=== PATIENT | female | born 1940 | race Caucasian/White ===

== ENCOUNTER 2024-11-05 13:25 | Inpatient (IN) | payer MEDICARE, SELFPAY ==
[2024-11-02] VITALS (11 sets, daily range): BP systolic 125–168; BP diastolic 56–69; BMI 22.1
--- NOTE | 2024-11-02 10:09 | ED.GENMED ---
History of Present Illness
General
Chief Complaint: Breathing Problem
Time Seen by Provider: 11/02/24 09:57
Nursing documentation reviewed up to this point in time: agreed with
History of Present Illness
History of Present Illness:
84-year-old female presents to the ER for evaluation of shortness of breath. Patient is a vague historian with a history of Alzheimer's. She is accompanied by her who provides the majority of the history. He states that she had 2
significant admissions this summer at [facility] due to similar symptoms of shortness of breath which led to admissions for treatment of sepsis. He reports that they were unable to find any clear etiology of the infection. He had been at rehab up
until last Saturday and has been living at home with him since then. Yesterday morning on awakening she had an episode of shortness of breath and severe fatigue. Symptoms seem to improve throughout the day. He states that this morning she was
short of breath and unable to take her prescription medications prompting telehealth to refer her to the ER for further evaluation. She is a long-term patient of Dr. Peterson, oncology, for treatment of breast cancer, currently only on anastrozole.
also reports that patient may need to undergo bone marrow biopsy due to recent testing that had been performed by Dr. Peterson. No reported fevers at home. Patient denies chest pain. She denies abdominal pain nausea vomiting or diarrhea.
No peripheral edema noted. No prior personal history of ACS. reports that she underwent catheterization at [facility] in April without any significant coronary artery disease identified.
Review of Systems
Review of Systems
Allergies reviewed?: Yes
Phy Exam
Physical Exam
Physical Exam:
Patient is awake, elderly, appears in no acute distress, head is normocephalic atraumatic, PERRL, EOMI, mucous membranes moist, conjunctiva pink, sclera anicteric, no JVD, heart regular rate and rhythm without murmurs or ectopy, lungs are clear to
auscultation without wheezes rales or rhonchi, abdomen is soft and nontender on palpation, extremities without edema, moving all extremities symmetrically without focal deficit
Scores
Heart Failure Risk
Heart Failure Risk Score: Not Applicable
Course
Orders/Labs/Results
Orders:
Orders
11/02/24 09:45
ECG [Electrocardiogram (*1)] Urgent
Reason for Study: Shortness of Breath
EKG- Treatment ONCE
11/02/24 10:06
IV Insert/Care/Rem.- Treatment PRN
Straight cath- Treatment ONCE
Pulse Ox/cont/shift [RESP] Stat
Quantity: 1
11/02/24 10:07
Cardiac Monitoring- Treatment ONCE
CR Chest - 2 Views Urgent
Comment:
Reason For Exam: dyspnea
11/02/24 10:22
Complete Blood Count/With Diff Urgent
Comprehensive Metabolic Panel Urgent
Magnesium Urgent
NT-proBNP Urgent
PTT Urgent
Prothrombin Time Urgent
Troponin I Q3H
Urinalysis Reflex To Culture Urgent
Date Specimen was Collected: 11/02/24
Time Specimen was Collected: 10:20
Urine Microscopic Reflex Cult Urgent
11/02/24 11:41
CT Pe/abd/pel W Urgent
Reason For Exam: dyspnea, elev LFTs
11/02/24 12:02
0.9% Sodium Chloride 500 ml [Nss] 500 ml IV BOLUS
Abnormal Lab Results
11/02/24
10:22
WBC 4.5 L 10^3/uL
(4.8-10.8)
RBC 2.93 L 10^6/uL
(4.20-5.40)
Hgb 9.6 L g/dL
(12.0-16.0)
Hct 26.5 L %
(37.0-47.0)
MCH 32.8 H pg
(27.0-31.0)
RDW 17.5 H %
(11.5-14.5)
MPV 11.3 H fL
(7.4-10.4)
Abs Immat Gran (auto) 0.1 H 10^3/uL
(0-0.05)
Absolute Lymphs (auto) 0.8 L 10^3/uL
(1.2-3.4)
Immature Gran % 1.1 H %
(0-0.5)
Lymphocytes % 17.9 L %
(20.5-51.1)
Chloride 110 H mmol/L
(98-107)
Carbon Dioxide 17 L mmol/L
(22-30)
BUN 30 H mg/dl
(7-17)
Glucose 168 H mg/dl
(70-99)
Magnesium 2.4 H mg/dl
(1.6-2.3)
AST 102 H U/L
(14-36)
ALT 207 H U/L
(0-35)
Alkaline Phosphatase 677 H U/L
(38-126)
Urine Albumin (Reflex) 2+ A
(Neg - Trace)
11/02/24 10:22
11/02/24 10:22
Vital Signs
Initial and Last Documented VS:
Initial Vital Signs
Temp Pulse Resp BP Pulse Ox
97.4 F 66 18 125/65 100
11/02/24 09:39 11/02/24 09:39 11/02/24 09:39 11/02/24 09:39 11/02/24 09:39
Last Documented Vital Signs
Temp Pulse Resp BP Pulse Ox
97.4 F 74 23 143/64 100
11/02/24 09:39 11/02/24 15:00 11/02/24 15:00 11/02/24 15:00 11/02/24 13:45
MDM/Problems Addressed
Differential Diagnosis Includes:
Differential diagnosis to consider but not limited to occult infection, dehydration, electrolyte dyscrasia, ACS, along with other etiologies considered
Chronic conditions affecting care:
Dementia, breast cancer, recent hospitalization, advanced age
*Radiology
Radiology exam reviewed: radiology read reviewed (I reviewed CT results)
*Pulse Oximetry
SaO2: 100
Oxygen Mode of Delivery: Room air
Patient hypoxic: no
*EKG
Interpreted by ED Provider?: Yes (I independently viewed and interpreted twelve-lead EKG showing normal sinus rhythm, rate 64, normal axis, normal intervals, T wave inversion noted in the lateral leads, no evidence for acute ischemia, no prior for
comparison)
*Director Of Consumer Affairs Interpretation
Rate: normal (I independently viewed and interpreted rhythm strip showing normal sinus rhythm, no ectopy)
*Critical Care Note
Total Time (30-74mins, 75-104mins- exclusive of procedures): Not Applicable
Data Reviewed
Review of Other/Old Records Reveals: Labs (Patient's was able to pull up results on his phone to share with me CBC from 10/27/24-white blood count 3.8, hemoglobin 9. Chemistry from 10/15 showed sodium 132, CO2 20, BUN 29, creatinine 1.39, alk
phos 243, AST 16, ALT 34. STORMY from 10/15 showed mild concentric LVH with an EF of 60 to 65%.) and Radiology Studies ( was able to show me noncontrast CT abdomen and pelvis result from 10/12/24 showing simple right renal cyst, diverticulosis,
ASCVD, status post cholecystectomy, right adrenal adenoma and bibasilar atelectasis)
Update Note
Update Note:
Patient resting comfortably. She been placed on nasal cannula oxygen just due to tachypnea, no documented hypoxia while awaiting test results. I reviewed all test results with patient, at bedside and daughter over the telephone. We
discussed mild anemia seen. We discussed elevation LFTs along with normal troponin. I discussed with them chest x-ray without acute finding. Given known history of malignancy, will obtain CT PE along with CT of the abdomen pelvis for further
evaluation. They agree with plan at current. Will reevaluate.
I was able to speak with on-call oncologist covering for Dr. Peterson, who was able to review patient's medical record at time of our conversation. He would agree that LFT elevations are new and of uncertain but possibly concerning significance. We
reviewed her recent CT chest scan from October which did show a 3 mm right upper lobe nodule, a 7 mm right lower lobe nodule and a small left pleural effusion. I discussed with him the patient would likely be admitted for further evaluation and
care. He agrees with this plan. I reviewed full patient presentation with hospitalist who accepts patient for admission for further care
ED Attending Note
-
Portions of this chart may have been created with voice recognition software.� Occasional wrong word or��sound alike� substitutions may have occurred due to the inherent limitations of voice recognition software.
Discharge Plan
Departure
Patient Disposition: Admit
Date of Disposition: 11/02/24
Time of Disposition: 14:43
Presentation/result/management discussed w/ accepting MD/DO: Hospitalist
Discharge Problem:
Elevated LFTs, Tachypnea, Malignancy
Referrals:
PRIVATE,PHYSICIAN [Family Provider, Internal Medicine]
Interventions
Interventions:
*Risk Screen - Suicide Last Done: 11/02/24 09:39
*General Assessment Last Done: 11/02/24 09:39
*Neglect/Abuse Screening Last Done: 11/02/24 10:25
*ED- Fall Risk Assessment Last Done: 11/02/24 10:25
*ED COVID-19 Vaccine History Last Done: 11/02/24 10:25
ED- Cardiac Assessment Last Done: 11/02/24 10:02
ED- Pulmonary Assessment Last Done: 11/02/24 10:02
Discharge Date and Time
Print Language: SINHALA
[2024-11-02 10:33] LABS: Urine Character Clear (Clear)
[2024-11-02 10:48] LABS: ALT (SGPT) 207 U/L (0-35); AST (SGOT) 102 U/L (14-36); Albumin 3.5 g/dl (3.5-5.0); Alkaline Phosphatase 677 U/L (38-126); Blood Urea Nitrogen 30 mg/dl (7-17); Calcium 9.2 mg/dl (8.4-10.2); Carbon Dioxide 17 mmol/L (22-30); Chloride 110 mmol/L (98-107); Glucose 168 mg/dl (70-99); Magnesium 2.4 mg/dl (1.6-2.3); Potassium 4.7 mmol/L (3.5-5.1); Sodium 135 mmol/L (135-145); Total Protein 6.4 g/dl (6.3-8.2); eGFR 56.25
[2024-11-02 11:00] LABS: Troponin I < 0.012 ng/ml
[2024-11-02 11:09] LABS: INR 1.04; PT 13.9 Sec (11.4-14.6)
[2024-11-02 11:10] LABS: APTT 29.4 Sec (23.4-35.0)
[2024-11-02 11:18] LABS: Hematocrit 26.5 % (37.0-47.0); Hemoglobin 9.6 g/dL (12.0-16.0); Mean Corp Hgb Conc. 36.2 g/dL (33.0-37.0); Mean Corpuscular Volume 90.4 fL (81.0-99.0); Nucleated Red Blood Cells % 0 %; Platelet Count 202 10^3/uL (130-400); Red Cell Dist. Width 17.5 % (11.5-14.5)
[2024-11-02] MEDS: NSS 500 IV ×2 (12:35→16:10)
[2024-11-02 12:57] LABS: Urine Red Blood Cell 0-2 /HPF (0-2)
--- NOTE | 2024-11-02 14:38 | HPS.HSE ---
Family Physician
-
Family Physician: PHYSICIAN PRIVATE
Chief Complaint
-
Dizzy, fatigue and short of breath
History of Present Illness
84-year-old female past medical history for Alzheimer's, dementia, obstructive sleep apnea, CKD, NSTEMI, coronary artery disease, type 2 diabetes, papillary thyroid cancer status post thyroidectomy renal cell cancer status post left nephrectomy,
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 Patient recently
admitted to [facility] with the same symptoms. Lastly she was then admitted to [facility] with sepsis of unclear etiology. Patient just came home last week from rehab. Patient denied any headache fever, chills, cough, congestion. Patient
denied any abdominal pain, nausea, vomiting, diarrhea. Patient denied dysuria hematuria. She is a long-term patient of Dr. Peterson, oncology, for treatment of breast cancer, currently only on anastrozole. also reports that patient may need
to undergo bone marrow biopsy due to recent testing that had been performed by Dr. Peterson.
Admitting for further management.
Medical History
Past Medical History
Past Medical History: Reports Other
Additional Past Medical History:
Osteoarthritis, CKD, NSTEMI, coronary artery disease, type 2 diabetes, hyperlipidemia, diverticulitis, GERD, hypertension, hypothyroidism, Alzheimer's, dementia, obstructive sleep apnea, papillary thyroid cancer, renal cell cancer, breast cancer,
precancerous pancreatic cell
Past Surgical History: Reports Other
Additional Past Surgical History:
Thyroidectomy, left nephrectomy, Whipple surgery
Social History
Tobacco: Former Smoker
Alcohol: None
Drug: None
Personal:
Living: With Family
Family History
Family History: Not pertinent
Allergies / Home Medications
Allergies reflects when Allergies were last updated in [facility].
Home Medications with original date entered in [facility]
Allergy/Medication List:
Allergies
Allergy/AdvReac Type Severity Reaction Status Date / Time
No Known Allergies Allergy Unverified 11/02/24 09:44
Review of Systems
-
Constitutional: Reports Fatigue
EENT: Reports No Symptoms
Respiratory: Reports Trouble Breathing
Cardiac: Reports Chest Pain
Abdomen/GI: Reports No Symptoms
: Reports No Symptoms
Musculoskeletal: Reports No Symptoms
Skin: Reports No Symptoms
Neurological: Reports Dizzy
Endocrine: Reports No Symptoms
Hematologic/Lymphatic: Reports No Symptoms
Psych: Reports No Symptoms
Physical Exam
Vital Signs
Vital Signs
Temp Pulse Resp BP Pulse Ox
97.4 F 71 29 168/56 100
11/02/24 09:39 11/02/24 13:45 11/02/24 13:45 11/02/24 13:25 11/02/24 13:45
Physical Exam
General: Well Developed, Well Nourished and No Apparent Distress
HEENT: NormoCephalic, Moist mucous membranes and Atraumatic
Respiratory: Clear
Cardiac: S1/S2 and Regular Rhythm; No Murmur or Rub
GI: Soft, Non Tender, Non Distended and Normal Bowel Sounds; No Organomegaly
Rectal: Deferred by Provider
Musculoskeletal: No Clubbing, No Cyanosis and No Edema
Skin: No Rash
Neuro: AO x 3 and Nonfocal/grossly intact
Psych: Calm
Laboratory Results
-
11/02/24 10:22
11/02/24 10:22
Laboratory Results
PT 13.9 Sec (11.4-14.6) 11/02/24 10:22
INR 1.04 11/02/24 10:22
APTT 29.4 Sec (23.4-35.0) 11/02/24 10:22
Total Bilirubin 0.6 mg/dl (0.2-1.3) 11/02/24 10:22
AST 102 U/L (14-36) H 11/02/24 10:22
ALT 207 U/L (0-35) H 11/02/24 10:22
Alkaline Phosphatase 677 U/L (38-126) H 11/02/24 10:22
Troponin I < 0.012 ng/ml 11/02/24 10:22
Troponin I Cancelled 11/02/24 10:22
Data Reviewed
-
Diagnostic Radiology: Report Reviewed by me
CT Scan: Report Reviewed by me
Lab Data: Labs Reviewed by me
Impression/Plan
-
# Tachypnea/dizzy, fatigue,chest pain sob likely from metastatic disease
- CTPE negative for PE. Pulmonary nodules raising possibility of pulmonary metastasis
- Chest x-ray negative
- Continue to monitor
-pulmonology and oncology consulted
# Transaminitis likely metastatic disease.
- AST 102, ALT 207, 677
-denied abdominal pain
# Anemia likely from chronic disease
- Hemoglobin 9.6, no active bleeding
-ctm
#non anion gap Metabolic acidosis
-co2 17, ctm
# History of papillary thyroid cancer
- Status post thyroidectomy
- On Synthroid
# Type 2 diabetes
- repaglinide continued
-Sliding scale, CHO diet
# Depression/anxiety
# History of Alzheimer's with dementia
-Sertraline continued
# Essential hypertension
- Norvasc, continue with hold parameters
#History of CAD/NSTEMI
- Aspirin continued
# History of breast cancer
- On anastrozole
# History of kidney cancer status post left nephrectomy
# DVT prophylaxis
- Lovenox
# CODE STATUS
- Full code
--- NOTE | 2024-11-02 15:29 | W.PN.UPDATE ---
Update Note
Progress Note Update
I could not get any information from the patient is katina historian due to cognitve disorder wiht mild alziemers dementia
Information gathered by chart review and speaking with the ER staff and
This note serves as an addendum to the H&P by research geologist VIMAL�
Mame EVELYNE�
HPI�
84F vague historian , cognitve disorder with mild alziemers dementian no prior admission to , normally f/u [facility], HC HTN, Breast CA on anastrozole , Lt nephrctomy for HX RCCCa left with solitary R Kideney with preserved renal
function, HX thyroidenctomy , on LT4 HRT , Depression seen at ER
- evaluation of shortness of breath
- accompanied by her who provides the majority of the history
- she had 2 significant admissions this summer at [facility] due to similar symptoms of shortness of breath found out sepsis and treated but uncertain origin for infection.
- then she had been at SNF up until last Saturday10/28/24 then DC'd to home and has been living at home
- Yesterday morning on awakening she had an episode of shortness of breath and severe fatigue. Symptoms seem to improve throughout the day. He states that this morning she was short of breath and unable to take her prescription medications
prompting telehealth to refer her to the ER for further evaluation.
ROS:
No reported fevers at home.
denies chest pain.
denies abdominal pain nausea vomiting or diarrhea.
No peripheral edema noted.
No prior personal history of ACS.
Of note:
long-term patient of Dr. Peterson, oncology, for treatment of breast cancer, currently only on anastrozole.
also reports that patient may need to undergo bone marrow biopsy due to recent testing that had been performed by Dr. Peterson. reports that she underwent catheterization at [facility] in April without any significant coronary
artery disease identified.
Relevant VS
Temp Pulse Resp BP Pulse Ox
97.4 F 74 23 143/64 100
11/02/24 09:39 09/01/25 15:00 11/02/24 15:00 11/02/24 15:00 11/02/24 13:45
PE
Gen: NAD, not toxic
HEENT: NAD
Neck: no JVD
Lungs: CTA without wheezes rales or rhonchi
Cor: RRR. No murmur
Abdomen:� soft and nontender
ZOO KEEPER: NFND grossly
EXT; no edema
Relevant Data�
11/02/24
10:22
WBC 4.5 L
Hgb 9.6 L
MCV 90.4
Plt Count 202
INR 1.04
Chloride 110 H
Carbon Dioxide 17 L
BUN 30 H
Creatinine 1.0
eGFR 56.25
Glucose 168 H
Magnesium 2.4 H
AST 102 H
ALT 207 H
Alkaline Phosphatase 677 H
Eli-C-Nvblayqgihr Pept 407
Albumin 3.5
EKG
NSR
T WAVE ABNORMALITY, CONSIDER LATERAL ISCHEMIA
ABNORMAL ECG
NO PREVIOUS ECGS AVAILABLE
CXR: no acute process
CT Pe/abd/pel W intravenous contrast
- No acute disease of the chest, abdomen and pelvis.
- No evidence of pulmonary embolus.
- Pulmonary nodules raising possibility of pulmonary metastasis.
PET imaging recommended. [facility] Pulmonary Nodule Advisory Board will be automatically informed of the findings.
- Several too small to characterize hypodense hepatic lesions likely cysts or hemangiomas.
- Right parapelvic renal cysts. Simple right renal cysts.
Too small to characterize hypodense right renal lesions likely benign cysts.
- Left nephrectomy.
- Right adrenal soft tissue nodule.
This may be malignant or benign.
- This could further be evaluated by a nonurgent PET imaging or MRI examination.
- Moderate fecal matter in the colon.
NO PRIOR hospitalist admission:
ASSESSMENT & PLAN
Pending Rx reconciliation
Paroxysmal Dyspneic episodes with tachypnea of uncertain origin
Pulmonary nodules raising possibility of pulmonary metastasis from Breast CA
HX Breast CA
P oncologist at [facility]: Dr. Peterson
- no objective hypoxia
- NEG CTC for PE
- No evidence of PNA
- No clinical evidence of acute HF - NEG CXR
- Not bronchospastic
- f/u RR and POx
- Onco and Pul consult
Elevated LFTs of uncertain significance - ALT > AST wit POS AKP
- Concerning for liver mets
- avoid Hepatotoxic
- To consider Liver MRI
- await Onco evaluation
Bicytopenia ( WCC and RBC)
Normocytic anemia
Normal Plt
DDX: BM infiltration ?
- trend CBC with differentia
HX Breast CA on Anastrazole
- Recurrent metastatic dz to Lungs, Ary<del>e</del>r and BM ?
- To consider BM Bx as OP
- await Onco evaluation
NAG MA 8 with HCO3 17
Solitary R Kidney
S/P Lt nephrectomy for RCCa
- preserved RFts
- Trend BMP daily
Moderate fecal matter in the colon
- IV NS 500 cc x1
- Miralax now and daily
- Colace BID and hold for diarrhea
Conditions LEAD ESTHETICIAN
Essential HTN: stable, LEAD ESTHETICIAN Lisinopril 40 daily, Amlodipine 10mg daily, trend BMP
Depression: stable, on LEAD ESTHETICIAN sertraline
DVT Px: LMWH
Full code
OBS but TLM due to tachypnea
[2024-11-02] MEDS: MIRALAX 17 GRAMS PO (16:11)
[2024-11-02 16:47] LABS: Glucose - Point of Care 228 mg/dl (70-99)
[2024-11-02] MEDS: PRANDIN 2 MG PO (17:12)
[2024-11-02] MEDS: NOVOLOG FLEXPEN-LOW RESISTANCE 2 UNITS SC (17:12)
[2024-11-02] MEDS: LOVENOX 40 MG SC (17:12)
--- NOTE | 2024-11-02 17:30 | PTCARENOTE ---
Received patient from ED via stretcher. AAOx3, assisted to bed. Forgetful at times. Bed alarm in place. at bedside. Assessed and oriented to room. Continues to be SOB/Tachypneic but states 'it is better than it was'. 3LO2 100%. Call lyon in
close reach.
[2024-11-02] MEDS: COLACE 100 MG PO (19:58)
[2024-11-02] MEDS: ZOLOFT 50 MG PO (20:01)
[2024-11-02] MEDS: SENOKOT-S 1 TABLET PO (20:06)
[2024-11-02] MEDS: NORVASC 5 MG PO (20:10)
[2024-11-02 21:19] LABS: Glucose - Point of Care 239 mg/dl (70-99)
[2024-11-03 03:00] VITALS: BP 148/56
[2024-11-03] MEDS: SYNTHROID 125 MCG PO (05:51)
[2024-11-03 07:30] VITALS: BP 128/61
[2024-11-03 07:47] LABS: Glucose - Point of Care 206 mg/dl (70-99)
[2024-11-03 08:09] LABS: Hematocrit 27.1 % (37.0-47.0); Hemoglobin 9.1 g/dL (12.0-16.0); Mean Corp Hgb Conc. 33.6 g/dL (33.0-37.0); Mean Corpuscular Volume 91.6 fL (81.0-99.0); Nucleated Red Blood Cells % 0 %; Platelet Count 201 10^3/uL (130-400); Red Cell Dist. Width 17.8 % (11.5-14.5)
[2024-11-03 08:56] LABS: ALT (SGPT) 158 U/L (0-35); AST (SGOT) 71 U/L (14-36); Albumin 3.1 g/dl (3.5-5.0); Alkaline Phosphatase 561 U/L (38-126); Blood Urea Nitrogen 26 mg/dl (7-17); Calcium 7.7 mg/dl (8.4-10.2); Carbon Dioxide 17 mmol/L (22-30); Chloride 113 mmol/L (98-107); Estimated Creatinine Clearance 34 ml/min; Glucose 169 mg/dl (70-99); Potassium 4.4 mmol/L (3.5-5.1); Sodium 136 mmol/L (135-145); Total Protein 5.7 g/dl (6.3-8.2); eGFR 50.17
--- NOTE | 2024-11-03 09:12 | W.PN.HOSP.TC ---
Today's Communication/Plan
-
Wean off oxygen
Assessment / Plan
Assessment / Plan
Physical Exam
General: Well Developed, Well Nourished and No Apparent Distress
HEENT: Normocephalic, Moist mucous membranes and Atraumatic
Respiratory: no wheezes.
Cardiac: S1/S2
GI: Soft, Non Tender, Non Distended and Normal Bowel Sounds;
Musculoskeletal: No Clubbing, No Cyanosis and No Edema
Skin: No Rash
Neuro: AO x 3 and Nonfocal/grossly intact
Psych: Calm
# Acute respiratory distress
She presented with Tachypnea/dizzy, fatigue,chest discomfort
No hypoxia detected, she was given oxygen for comfort
- CTPE negative for PE. Pulmonary nodules raising possibility of pulmonary metastasis
- Chest x-ray negative
- Continue to monitor
-pulmonology and oncology consulted
# Transaminitis likely metastatic disease.
- AST 102, ALT 207, 677
-denied abdominal pain
# Anemia likely from chronic disease
- Hemoglobin 9.6, no active bleeding
-ctm
# History of kidney cancer status post left nephrectomy
Known CKD stage II non anion gap Metabolic acidosis
# History of papillary thyroid cancer
- Status post thyroidectomy
- On Synthroid
# Type 2 diabetes
- repaglinide continued
-Sliding scale, CHO diet
# Depression/anxiety
# History of Alzheimer's with dementia
-Sertraline continued
# Essential hypertension
- Norvasc, continue with hold parameters
#History of CAD/NSTEMI
No chest pain, she feels better, think O2 helped.
- Aspirin continued
# History of breast cancer
- On anastrozole
# DVT prophylaxis
- Lovenox
# CODE STATUS
Full code
Total time spent to see the patient, examine the patient, review data lab result, discuss treatment plan with patient, nursing staff around 55 minutes
Anticipated Discharge: Within 24 hours
Subjective/Interval History
-
Date of Service: November 03, 2024
No chest pain
No sob
She feels better
Objective Data
-
Labs:
Laboratory Results
11/03/24
06:57
WBC 5.4
Hgb 9.1 L
Hct 27.1 L
Plt Count 201
Sodium 136
Potassium 4.4
Chloride 113 H
Carbon Dioxide 17 L
BUN 26 H
Creatinine 1.1 H
Glucose 169 H
Calcium 7.7 L D
Total Bilirubin 0.3
AST 71 H
ALT 158 H
Alkaline Phosphatase 561 H
Vital Signs:
Vital Signs
Temp Pulse Resp BP Pulse Ox
98.5 F 68 20 128/61 96
11/03/24 07:30 11/03/24 07:30 11/03/24 07:30 11/03/24 07:30 11/03/24 07:30
I&O
11/02/24 11/03/24 11/04/24
06:59 06:59 06:59
Intake Total 500 / 500
Output Total 650 / 650
Balance -150 / -150
[2024-11-03] MEDS: DETROL LA 4 MG PO (09:34)
[2024-11-03] MEDS: COLACE 100 MG PO ×2 (09:34→21:14)
[2024-11-03] MEDS: ARIMIDEX 1 MG PO (09:34)
[2024-11-03] MEDS: MIRALAX 17 GRAMS PO (09:35)
[2024-11-03] MEDS: PRANDIN 2 MG PO ×2 (09:35→16:40)
[2024-11-03] MEDS: LOW STRENGTH ASPIRIN 81 MG PO (09:35)
[2024-11-03 09:42] LABS: Glycohemoglobin (HgbA1c) 7.3 % (4.0-5.6)
--- NOTE | 2024-11-03 10:37 | CON.ONC ---
Impression
Impression
History of breast cancer, stage unknown, currently on Arimidex
History of abnormal blood test that may require a bone marrow
Dementia
Shortness of breath, unclear etiology
History of renal cancer, status post nephrectomy
History of thyroid cancer
Plan
Plan
No clear etiology for her shortness of breath. I am not certain what the abnormal blood test that may require a bone marrow was. The only finding of note on her CBC is a hemoglobin of 9 g. I do not see an urgent need for a bone marrow at this
time. She should return to the care of her oncologist.
Patient History
History of Present Illness
Consult from Dr. Garcia regarding breast cancer
This 84-year-old woman was admitted with shortness of breath. She is unable to give me any sort of a meaningful history, and states that she is unaware of why she came to the emergency room. According to notes, she has had at least a couple of
other admissions in the last couple of months at other hospitals for symptomatic shortness of breath, no clear etiology ever found. She is on nasal oxygen at present, but her saturations have been in the mid to the high 90s. She denies any pain.
She underwent CT of the chest abdomen and pelvis which showed no pulmonary embolus. There were several small pulmonary nodules, as well as a 1.5 cm spiculated nodule. There were no other significant abnormalities.
Past-Medical/Surgical History
As per problem list.
Social history: She lives with her .
Family history is not obtainable.
Patient Medication
�Medication �Instructions �Recorded �Confirmed �Last Taken �Type
allopurinol 100 mg tablet 100 mg PO DAILY Gout 11/02/24 11/02/24 11/01/24 History
amlodipine 5 mg tablet 5 mg PO DAILY Blood Pressure 11/02/24 11/02/24 11/01/24 History
anastrozole 1 mg tablet 1 mg PO DAILY Cancer 11/02/24 11/02/24 11/01/24 History
aspirin 81 mg tablet,delayed 81 mg PO DAILY Blood Clot 11/02/24 11/02/24 11/01/24 History
release Prevention/Tx
cholecalciferol (vitamin D3) 25 25 mcg PO DAILY Supplement 11/02/24 11/02/24 11/01/24 History
mcg (1,000 unit) tablet
coenzyme Q10 100 mg tablet 100 mg PO DAILY Supplement 11/02/24 11/02/24 11/01/24 History
docusate sodium 100 mg capsule 100 mg PO BID Constipation 11/02/24 11/02/24 11/01/24 History
(Colace)
levothyroxine 125 mcg tablet 125 mcg PO DAILY@06 Thyroid 11/02/24 11/02/24 11/01/24 History
melatonin 5 mg tablet 5 mg PO HS PRN sleep 11/02/24 11/02/24 Unknown History
nitroglycerin 0.4 mg sublingual 0.4 mg sublingual PRN PRN CHEST 11/02/24 11/02/24 Unknown History
tablet PAIN
omeprazole 20 mg delayed 20 mg PO DAILYPRN PRN GERD 11/02/24 11/02/24 Unknown History
release,disintegrating tablet
repaglinide 2 mg tablet 2 mg PO BID Diabetes 11/02/24 11/02/24 11/01/24 History
sertraline 50 mg tablet 50 mg PO HS Mental Health/Anxiety 11/02/24 11/02/24 Unknown History
solifenacin 10 mg tablet 10 mg PO DAILY Urinary Issue 11/02/24 11/02/24 11/01/24 History
Active Medications
Generic Name Dose Route Start Last Admin
Trade Name Freq PRN Reason Stop Dose Admin
Amlodipine Besylate 5 mg 11/02/24 22:00 11/02/24 20:10
Amlodipine 5 Mg Tablet PO 11/30/24 21:59 5 mg
HS HUMBERTO Administration
Anastrozole 1 mg 11/03/24 08:00 11/03/24 09:34
Anastrozole 1 Mg Tablet PO 12/01/24 07:59 1 mg
DAILY HUMBERTO Administration
Aspirin 81 mg 11/03/24 08:00 11/03/24 09:35
Aspirin 81 Mg Chewable Tablet PO 12/01/24 07:59 81 mg
DAILY HUMBERTO Administration
Bisacodyl 10 mg 11/02/24 16:30
Bisacodyl 10 Mg Rectal Suppository RECTAL 11/30/24 16:29
[id number] PRN
constipation
Dextrose 12.5 grams 11/02/24 16:30
Dextrose 50% (0.5 Grams/Ml) 50 Ml Syringe IV 11/30/24 16:29
[id number] PRN
hypoglycemia
Protocol
Docusate Sodium 100 mg 11/02/24 20:00 11/03/24 09:34
Docusate Sodium 100 Mg Capsule PO 11/30/24 19:59 100 mg
BID HUMBERTO Administration
Enoxaparin Sodium 40 mg 11/02/24 18:00 11/02/24 17:12
Enoxaparin Sodium 40 Mg/0.4 Ml Syringe SC 11/30/24 17:59 40 mg
QPM HUMBERTO Administration
Glucagon 1 mg 11/02/24 16:30
Glucagon 1 Mg Vial IM 11/30/24 16:29
PRN PRN
hypoglycemia
Protocol
Insulin Aspart 0 units 11/02/24 16:30 11/02/24 17:12
Insulin Aspart Low Resistance 300 Units/3 Ml Pen.Injctr SC 11/30/24 16:29 2 units
AC HUMBERTO Administration
Protocol
Levothyroxine Sodium 125 mcg 11/03/24 06:00 11/03/24 05:51
Levothyroxine 125 Mcg Tablet PO 12/01/24 05:59 125 mcg
DAILY@0600 HUMBERTO Administration
Melatonin 5 mg 11/02/24 22:00
Melatonin 5 Mg Tablet PO 11/30/24 21:59
HS PRN
sleep
Polyethylene Glycol 17 grams 11/03/24 08:00 11/03/24 09:35
Polyethylene Glycol Powder 17 Grams Packet PO 12/01/24 07:59 17 grams
DAILY HUMBERTO Administration
Polyethylene Glycol 17 grams 11/02/24 16:30
Polyethylene Glycol Powder 17 Grams Packet PO 11/30/24 16:29
DAILYPRN PRN
constipation
Repaglinide 2 mg 11/02/24 17:00 11/03/24 09:35
Repaglinide 2 Mg Tablet PO 11/30/24 16:59 2 mg
BID@0800,1700 HUMBERTO Administration
Senna/Docusate Sodium 1 tablet 11/02/24 16:30 11/02/24 20:06
Docusate W/Senna (Candace-Colace) Tablet PO 11/30/24 16:29 1 tablet
BIDPRN PRN Administration
constipation
Sertraline HCl 50 mg 11/02/24 22:00 11/02/24 20:01
Sertraline 50 Mg Tablet PO 11/30/24 21:59 50 mg
HS HUMBERTO Administration
Tolterodine Tartrate 4 mg 11/03/24 08:00 11/03/24 09:34
Tolterodine 4 Mg Extended Release Capsule PO 12/01/24 07:59 4 mg
DAILY HUMBERTO Administration
Review of Systems
-
Unable to obtain full review of systems at this time due to: Dementia
Physical Exam
-
Physical examination shows the patient to be in no acute distress.
HEENT exam is unremarkable.
There are no palpable nodes.
Chest is clear.
The heart is regular with no murmur or gallop.
The abdomen is soft and nontender with no organomegaly or masses.
Extremities are unremarkable.
Neurologic is grossly intact.
Labs
Lab Results
WBC 5.4 10^3/uL (4.8-10.8) 11/03/24 06:57
RBC 2.96 10^6/uL (4.20-5.40) L 11/03/24 06:57
Hgb 9.1 g/dL (12.0-16.0) L 11/03/24 06:57
Hct 27.1 % (37.0-47.0) L 11/03/24 06:57
MCV 91.6 fL (81.0-99.0) 11/03/24 06:57
MCH 30.7 pg (27.0-31.0) 11/03/24 06:57
MCHC 33.6 g/dL (33.0-37.0) 11/03/24 06:57
RDW 17.8 % (11.5-14.5) H 11/03/24 06:57
Plt Count 201 10^3/uL (130-400) 11/03/24 06:57
MPV 10.6 fL (7.4-10.4) H 11/03/24 06:57
Abs Immat Gran (auto) 0.0 10^3/uL (0-0.05) 11/03/24 06:57
Absolute Neuts (auto) 4.0 10^3/uL (1.4-6.5) 11/03/24 06:57
Absolute Lymphs (auto) 0.9 10^3/uL (1.2-3.4) L 11/03/24 06:57
Absolute Monos (auto) 0.4 10^3/uL (0.1-0.6) 11/03/24 06:57
Absolute Eos (auto) 0.2 10^3/uL (0-0.7) 11/03/24 06:57
Absolute Basos (auto) 0.0 10^3/uL (0-0.2) 11/03/24 06:57
Immature Gran % 0.7 % (0-0.5) H 11/03/24 06:57
Neutrophils % 72.6 % (42.2-75.2) 11/03/24 06:57
Lymphocytes % 16.0 % (20.5-51.1) L 11/03/24 06:57
Monocytes % 7.2 % (1.7-9.3) 11/03/24 06:57
Eosinophils % 3.1 % (0-6) 11/03/24 06:57
Basophils % 0.4 % (0-2) 11/03/24 06:57
Creatinine 1.1 mg/dL (0.6-1.0) H 11/03/24 06:57
Vital Signs
Vital Signs
Temp Pulse Resp BP Pulse Ox
98.5 F 68 20 128/61 96
11/03/24 07:30 11/03/24 07:30 11/03/24 07:30 11/03/24 07:30 11/03/24 07:30
[2024-11-03 10:59] LABS: Glucose - Point of Care 199 mg/dl (70-99)
[2024-11-03] MEDS: NOVOLOG FLEXPEN-LOW RESISTANCE SC ×2 (10:59→16:40)
[2024-11-03] MEDS: NOVOLOG FLEXPEN-LOW RESISTANCE 1 UNITS SC (11:03)
[2024-11-03 11:07] VITALS: BP 125/59
--- NOTE | 2024-11-03 13:33 | CON.PUL ---
Consultation
Consultation Request
Date/Time Consultation Requested: 11/03/2024
Date/Time Consultation Performed: 11/03/2024
Requesting Provider: Dr. Hayes
Performing Provider: Dr. Mauricio Wheeler
Reason for Consultation: Abnormal CT chest/lung nodules/shortness of breath
Medical History
-
History of Present Illness:
84-year-old female with past medical history significant for Alzheimer's dementia, obstructive sleep apnea, chronic kidney disease, non-ST elevation myocardial infarction, coronary artery disease, type 2 diabetes, papillary thyroid cancer status
post thyroidectomy, renal cell cancer status post left nephrectomy, breast cancer currently on Arimidex-follows up at [facility]. Also status post Whipple surgery for precancerous pancreatic lesion, GERD, hyperlipidemia, hypertension
presented to the hospital complaining of shortness of breath for the past few days. Reports dizziness and fatigue and some chest tightness.
Recently was admitted to [facility] with similar symptoms.
Subsequently admitted to [facility] with sepsis of unclear source.
Discharged from rehab about a week ago.
Denies fevers, chills, headache, cough, congestion or phlegm production.
-
Part of the evaluation including a CT of the chest demonstrated bilateral pulmonary nodules. We were consulted for evaluation of this.
-
states that since Whipple surgery in February 2024 patient has not recovered.
She has been in and out of the hospital with extensive workup.
Also including sepsis.
Cardiac catheterization, multiple CAT scans of the chest and abdomen, echocardiogram. All of them with no significant abnormalities.
She has lost about 20 pounds.
She has been mostly sedentary.
-
She follows closely with oncology-her breast cancer was diagnosed in 2020. She has been on maintenance therapy.
Past Medical History
Past Medical History: Other (See assessment and plan)
Social History
Tobacco: Former Smoker
Alcohol: None
Drug: None
Personal:
Living: With Family
Family History
Family History: Reviewed & Not Pertinent
Allergies / Home Medications
Allergies
Allergy/AdvReac Type Severity Reaction Status Date / Time
No Known Allergies Allergy Unverified 11/02/24 09:44
Home Medications
�Medication �Instructions �Recorded �Confirmed �Last Taken �Type
allopurinol 100 mg tablet 100 mg PO DAILY Gout 11/02/24 11/02/24 11/01/24 History
amlodipine 5 mg tablet 5 mg PO DAILY Blood Pressure 11/02/24 11/02/24 11/01/24 History
anastrozole 1 mg tablet 1 mg PO DAILY Cancer 11/02/24 11/02/24 11/01/24 History
aspirin 81 mg tablet,delayed 81 mg PO DAILY Blood Clot 11/02/24 11/02/24 11/01/24 History
release Prevention/Tx
cholecalciferol (vitamin D3) 25 25 mcg PO DAILY Supplement 11/02/24 11/02/24 11/01/24 History
mcg (1,000 unit) tablet
coenzyme Q10 100 mg tablet 100 mg PO DAILY Supplement 11/02/24 11/02/24 11/01/24 History
docusate sodium 100 mg capsule 100 mg PO BID Constipation 11/02/24 11/02/24 11/01/24 History
(Colace)
levothyroxine 125 mcg tablet 125 mcg PO DAILY@06 Thyroid 11/02/24 11/02/24 11/01/24 History
melatonin 5 mg tablet 5 mg PO HS PRN sleep 11/02/24 11/02/24 Unknown History
nitroglycerin 0.4 mg sublingual 0.4 mg sublingual PRN PRN CHEST 11/02/24 11/02/24 Unknown History
tablet PAIN
omeprazole 20 mg delayed 20 mg PO DAILYPRN PRN GERD 11/02/24 11/02/24 Unknown History
release,disintegrating tablet
repaglinide 2 mg tablet 2 mg PO BID Diabetes 11/02/24 11/02/24 11/01/24 History
sertraline 50 mg tablet 50 mg PO HS Mental Health/Anxiety 11/02/24 11/02/24 Unknown History
solifenacin 10 mg tablet 10 mg PO DAILY Urinary Issue 11/02/24 11/02/24 11/01/24 History
Review of Systems
-
History Source: Patient
All other systems: Negative unless noted
Vitals / Labs / Diagnostic Testing
Vital Signs
Temp Pulse Resp BP Pulse Ox
97.3 F 68 18 125/59 100
11/03/24 11:07 11/03/24 11:07 11/03/24 11:07 11/03/24 11:07 11/03/24 11:07
Lab Data
11/03/24 06:57
11/03/24 06:57
Diagnostic Testing:
Physical Exam
-
HEENT: Normocephalic
Cardiovascular: S1/S2
Respiratory: Non-Labored Respirations
GI: Soft and Non Distended
Neurology: Awake, Alert, Oriented and No Motor Deficits
Skin: Warm
General: Comfortable
Assessment
-
84-year-old woman with multiple comorbidities, recently discharged from the hospital and rehab about a week ago. Apparently with sepsis of unknown source. Back with dyspnea sensation, feeling fatigued and dizzy-CT of the chest demonstrated
bilateral pulmonary nodules. We were consulted for evaluation.
Abnormal CT chest: Bilateral pulmonary nodules
CT chest 11/02/2024: Pleural-based right upper lobe 6 mm, right lower lobe 8 mm, spiculated pleural-based nodule lingula 1.7 cm. Left lower lobe 4 mm.
Exertional dyspnea/dizziness-nonspecific symptoms. Details obtained from daughter.
Negative proBNP
Negative troponin
CT chest: No infiltrates or pleural effusion. No evidence for pulmonary embolism or aortic dissection. Bilateral pulmonary nodules.
EKG: Normal sinus rhythm. T wave abnormality consider lateral ischemia.
Emphysema on CAT scan-no PFT available
Nongap metabolic acidosis-possibly post IV saline
Transaminitis-mostly due to metastatic disease
Normocytic anemia
Conditions present prior admission:
Recent admission to [facility]: Similar symptoms found to have sepsis of unclear source per family.
Chronic kidney disease
Osteoarthritis
Coronary artery disease
Type 2 diabetes
Hyperlipidemia
Diverticulosis
GERD
Hypertension
Hypothyroidism
Alzheimer's dementia
Obstructive sleep apnea
Papillary thyroid cancer status post thyroidectomy
Renal cell cancer status post nephrectomy
History of breast cancer, on Arimidex-no details available regarding stage-diagnosis since 2020
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
former smoker
Assessment and plan:.
-
In regards to pulmonary nodules: Potentially metastatic.
She has a longstanding history with her oncologist Dr. Peterson. Will recommend her to follow-up with him to decide whether PET scan or biopsy will be needed.
Reviewed CAT scan reports from phone. Performed in October 2024: Right upper lobe 3 mm nodule, 7 mm subpleural nodule in the right lower lobe. Otherwise clear lungs.
-
Some of the nodules particularly the left lower lobe pleural-based appears to be new. Could be inflammatory versus malignant. Others appear to be slightly enlarged based on reports.
Advised to get a CD to bring to the next oncology appointment.
Given abnormal LFTs PET scan probably will be required as well.
Her most recent cancer is breast-diagnosed since 2020.
This could be done in the outpatient setting.
-
In regards to exertional dyspnea:
Patient has been in and out of the hospital since her Whipple surgery February 2024-she never had recovered completely.
Extensive workup has been done.
She completed rehabilitation and was discharged about a week ago.
Daughter describes patient short of breath even with eating.
Random and not triggered by any physical activity at times.
On my exam lungs him is clear
There is no cough or phlegm production
She denies swallowing dysfunction
-
Patient denies being anxious.
So far telemetry without arrhythmia.
Records reviewed from hospital and found: Echocardiogram done in October 2024-showed mild LVH. Normal LVEF. Mild to moderate MR. No pericardial effusion.
states that patient underwent cardiac catheterization 04/2024: No acute abnormalities.
-
Emphysema on CAT scan-doubt this is contributing to any significant symptoms at this point.
May consider pulmonary function testing in the outpatient setting.
-
Chronic anemia-prior CBC reviewed from records and hemoglobin was 9 about 1 or 2 months ago.
?Apparently she was told she needed a bone marrow biopsy-can explain some of the symptoms. Recommend continue to follow-up with hematology oncology.
Not urgent evaluation can be performed in the outpatient setting.
-
Part of the shortness of breath may be from deconditioning, patient has been in the hospital for about 1 month and then to rehab.
She has lost about 20 pounds since surgery.
Since her Whipple surgery she has been in and out of the hospital and never recovered.
Unclear if symptoms may be related to her surgery.
May need to consider swallowing evaluation at some point if issues with eating remain.
-
Will obtain home oxygen assessment
Physical therapy evaluation
Continue to monitor for arrhythmias
-
If she is asymptomatic and nothing is found in the next 24 hours she could follow-up in the outpatient setting.
-
Will follow
-
Extensive discussion with and daughter at the bedside regarding lung nodules and current symptoms.
--- NOTE | 2024-11-03 15:05 | CM ---
Met with patient to obtain information for assessment. Patient's daughter and spouse was at bedside. Patient's spouse assists with all ADLs, personal care, dressing and bating. He cooks, cleans, does laundry and precast concrete products installer. He inquired into
services that can help him. Explanation provided that either this would be a private pay expense, or if eligible the [facility] can assist. Patient agreeable to speaking with Bar Helper from .
Patient has a cane, walker and w/c. She is current with [facility]. She has been to SNF in the past but does not feel that she will have to transfer after this admission.
Plan: Case management will continue to follow and assist with discharge planning. Home with resumption of care through [facility].
[2024-11-03 15:23] VITALS: BP 134/62
[2024-11-03 16:35] LABS: Glucose - Point of Care 144 mg/dl (70-99)
[2024-11-03] MEDS: LOVENOX 40 MG SC (16:40)
[2024-11-03 19:55] VITALS: BP 116/48
[2024-11-03] MEDS: ZOLOFT 50 MG PO (21:14)
[2024-11-03] MEDS: NORVASC 5 MG PO (21:14)
[2024-11-03 21:21] LABS: Glucose - Point of Care 135 mg/dl (70-99)
[2024-11-03 23:17] VITALS: BP 123/58
[2024-11-04] VITALS (7 sets, daily range): BP systolic 118–131; BP diastolic 51–60; BMI 22.2
[2024-11-04] MEDS: SYNTHROID 125 MCG PO (05:23)
--- NOTE | 2024-11-04 05:28 | PTCARENOTE ---
Addendum entered by Manisha Jordan RN 11/04/24 06:13:
SHEET MANAGER on floor in too see patient. Morning labs drawn. Electronic order for IV morphine (refer to MAY)
Original Note:
Pt very WOODS w/labored breathing after ambulating to BR. SpO2 99% on 1L. Head of bed elevated. Denies chest pain, reports heaviness w/breaths.
--- NOTE | 2024-11-04 06:09 | W.PN.UPDATE ---
Update Note
Progress Note Update
Patient seen for increased work of breathing after returning from bathroom. Patient respiration 22-24, on 1L NC, pulsox 98-99%. On assessment, lungs clear, no wheezes, no crackles. Patient appears slightly anxious d/t work of breathing. Ordered
Morphine 1 mg IV x 1.
[2024-11-04] MEDS: MORPHINE SULFATE 1 MG IV (06:15)
[2024-11-04 06:22] LABS: Hematocrit 29.0 % (37.0-47.0); Hemoglobin 9.3 g/dL (12.0-16.0); Mean Corp Hgb Conc. 32.1 g/dL (33.0-37.0); Mean Corpuscular Volume 93.5 fL (81.0-99.0); Platelet Count 214 10^3/uL (130-400); Red Cell Dist. Width 18.2 % (11.5-14.5)
[2024-11-04 06:58] LABS: ALT (SGPT) 123 U/L (0-35); AST (SGOT) 48 U/L (14-36); Albumin 3.2 g/dl (3.5-5.0); Alkaline Phosphatase 573 U/L (38-126); Blood Urea Nitrogen 29 mg/dl (7-17); Calcium 8.0 mg/dl (8.4-10.2); Carbon Dioxide 17 mmol/L (22-30); Chloride 114 mmol/L (98-107); Estimated Creatinine Clearance 31 ml/min; Glucose 142 mg/dl (70-99); Potassium 5.0 mmol/L (3.5-5.1); Sodium 136 mmol/L (135-145); Total Protein 6.0 g/dl (6.3-8.2); eGFR 45.19
[2024-11-04 08:13] LABS: Glucose - Point of Care 161 mg/dl (70-99)
[2024-11-04] MEDS: DETROL LA 4 MG PO (08:39)
[2024-11-04] MEDS: PRANDIN 2 MG PO ×2 (08:39→16:49)
[2024-11-04] MEDS: MIRALAX 17 GRAMS PO (08:39)
[2024-11-04] MEDS: COLACE 100 MG PO ×2 (08:40→20:47)
[2024-11-04] MEDS: ARIMIDEX 1 MG PO (08:40)
[2024-11-04] MEDS: NOVOLOG FLEXPEN-LOW RESISTANCE 1 UNITS SC (08:40)
[2024-11-04] MEDS: LOW STRENGTH ASPIRIN 81 MG PO (08:40)
--- NOTE | 2024-11-04 10:13 | W.PN.HOSP.TC ---
Addendum entered and electronically signed by Ramirez Hayes MD 11/04/24 17:47:
Addendum
-Patient has low-grade fever. Will do urine test, blood culture. Empiric Rocephin.
- Patient has upper back pain. Workup for cardiac event is not consistent with acute coronary syndrome. Likely musculoskeletal or others. Will give lidocaine patch, high-dose Tylenol [id number] and low-dose oxycodone(family agreed to use
narcotic to avoid nonsteroidal anti-inflammatory drugs)
End
Original Note:
Today's Communication/Plan
-
Pt has SOB
Primary oncologist Dr Peterson [phone]
Assessment / Plan
Assessment / Plan
Physical Exam
General: Well Developed, Well Nourished and No Apparent Distress
HEENT: Normocephalic, Moist mucous membranes and Atraumatic
Respiratory: no wheezes.
Cardiac: S1/S2
GI: Soft, Non Tender, Non Distended and Normal Bowel Sounds;
Musculoskeletal: No Clubbing, No Cyanosis and No Edema
Skin: No Rash
Neuro: AO x 3 and Nonfocal/grossly intact
Psych: Calm
# Acute respiratory distress
She continues to have sob although her SaO2 in normal.
Stat x ray/ troponin/EKG no acute findings
She presented with Tachypnea/dizzy, fatigue,chest discomfort
CT chest with contrast : negative for PE. Pulmonary nodules raising possibility of pulmonary metastasis
- Continue to monitor
-pulmonology and oncology consulted.
Per oncology, no new recommendations
# Transaminitis likely metastatic disease.
- AST 102, ALT 207, 677
-denied abdominal pain
# Anemia likely from chronic disease
- Hemoglobin 9.6, no active bleeding
-ctm
# History of kidney cancer status post left nephrectomy
Known CKD stage II non anion gap Metabolic acidosis
# History of papillary thyroid cancer
- Status post thyroidectomy
- On Synthroid
# Type 2 diabetes
- repaglinide continued
-Sliding scale, CHO diet
# Depression/anxiety
# History of Alzheimer's with dementia
-Sertraline continued
# Essential hypertension
- Norvasc, continue with hold parameters
#History of CAD/NSTEMI
No chest pain, she feels better, think O2 helped.
- Aspirin continued
# History of breast cancer
- On anastrozole
Primary oncologist Dr Peterson [phone]
# DVT prophylaxis
- Lovenox
# CODE STATUS
Full code
Total time spent to see the patient, examine the patient, review data lab result, discuss treatment plan with patient, nursing staff around 55 minutes
Anticipated Discharge: > 48 hours
Subjective/Interval History
-
Date of Service: November 04, 2024
She reports sob
Objective Data
-
Labs:
Laboratory Results
11/04/24
06:06
WBC 4.9
Hgb 9.3 L
Hct 29.0 L
Plt Count 214
Sodium 136
Potassium 5.0
Chloride 114 H
Carbon Dioxide 17 L
BUN 29 H
Creatinine 1.2 H
Glucose 142 H
Calcium 8.0 L
Total Bilirubin 0.5
AST 48 H
ALT 123 H
Alkaline Phosphatase 573 H
Vital Signs:
Vital Signs
Temp Pulse Resp BP Pulse Ox
98.3 F 68 15 127/58 99
11/04/24 03:48 11/04/24 03:48 11/04/24 03:48 11/04/24 03:48 11/04/24 03:48
I&O
11/03/24 11/04/24 11/05/24
06:59 06:59 06:59
Intake Total 500 / 500 960 / 960
Output Total 650 / 650
Balance -150 / -150 960 / 960
[2024-11-04 10:21] LABS: Troponin I < 0.012 ng/ml
[2024-11-04 12:07] LABS: Glucose - Point of Care 207 mg/dl (70-99)
[2024-11-04] MEDS: NOVOLOG FLEXPEN-LOW RESISTANCE 2 UNITS SC (13:25)
[2024-11-04 16:47] LABS: Glucose - Point of Care 136 mg/dl (70-99)
[2024-11-04] MEDS: NOVOLOG FLEXPEN-LOW RESISTANCE SC (16:48)
[2024-11-04] MEDS: LIDOCAINE 4% PATCH 1 PATCH TOPICAL (16:49)
[2024-11-04] MEDS: TYLENOL 1000 MG PO ×2 (16:49→22:40)
[2024-11-04] MEDS: LOVENOX 40 MG SC (16:49)
--- NOTE | 2024-11-04 16:53 | W.PN.PUL3 ---
Today's Communication / Plan
-
Continue with observation
Telemetry
Pain control
Focus on comfort
According to be repeated will follow
Will follow briefly
Assessment
-
84-year-old woman with multiple comorbidities, recently discharged from the hospital and rehab about a week ago. Apparently with sepsis of unknown source. Back with dyspnea sensation, feeling fatigued and dizzy-CT of the chest demonstrated
bilateral pulmonary nodules. We were consulted for evaluation.
Abnormal CT chest: Bilateral pulmonary nodules
CT chest 11/02/2024: Pleural-based right upper lobe 6 mm, right lower lobe 8 mm, spiculated pleural-based nodule lingula 1.7 cm. Left lower lobe 4 mm.
Exertional dyspnea/dizziness-nonspecific symptoms. Details obtained from daughter.
Negative proBNP
Negative troponin
CT chest: No infiltrates or pleural effusion. No evidence for pulmonary embolism or aortic dissection. Bilateral pulmonary nodules.
EKG: Normal sinus rhythm. T wave abnormality consider lateral ischemia.
Emphysema on CAT scan-no PFT available
Nongap metabolic acidosis-possibly post IV saline
Transaminitis-mostly due to metastatic disease
Normocytic anemia
Conditions present prior admission:
Recent admission to [facility] [address]: Similar symptoms found to have sepsis of unclear source per family.
Chronic kidney disease
Osteoarthritis
Coronary artery disease
Type 2 diabetes
Hyperlipidemia
Diverticulosis
GERD
Hypertension
Hypothyroidism
Alzheimer's dementia
Obstructive sleep apnea
Papillary thyroid cancer status post thyroidectomy
Renal cell cancer status post nephrectomy
History of breast cancer, on Arimidex-no details available regarding stage-diagnosis since 2020
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
former smoker
Assessment and plan:.
-
In regards to pulmonary nodules: Potentially metastatic.
She has a longstanding history with her oncologist Dr. Peterson. Will recommend her to follow-up with him to decide whether PET scan or biopsy will be needed.
Reviewed CAT scan reports from phone. Performed in October 2024: Right upper lobe 3 mm nodule, 7 mm subpleural nodule in the right lower lobe. Otherwise clear lungs.
-
Some of the nodules particularly the left lower lobe pleural-based appears to be new. Could be inflammatory versus malignant. Others appear to be slightly enlarged based on reports.
Advised to get a CD to bring to the next oncology appointment.
Given abnormal LFTs PET scan probably will be required as well.
Her most recent cancer is breast-diagnosed since 2020.
This could be done in the outpatient setting.
-
In regards to exertional dyspnea:
Patient has been in and out of the hospital since her Whipple surgery February 2024-she never had recovered completely.
Extensive workup has been done.
Likely has component of exertional dyspnea from deconditioning.
She completed rehabilitation and was discharged about a week ago.
Daughter describes patient short of breath even with eating-random episodes that spontaneously resolve-unclear etiology.
On 11/04/2024 had 1 episode-subjective dyspnea. Heart rate was 70-sinus rhythm on telemetry. Vital signs stable. Not hypoxemic. 99%.
Unclear if related to pain or anxiety.
Random and not triggered by any physical activity at times.
On my exam lungs him is clear
There is no cough or phlegm production
She denies swallowing dysfunction
Echocardiogram to be repeated.
-
Patient denies being anxious-but she does have history of underlying dementia. Worsened after her Whipple surgery in February 2024.
So far telemetry without arrhythmia.
Records reviewed from hospital and found: Echocardiogram done in October 2024-showed mild LVH. Normal LVEF. Mild to moderate MR. No pericardial effusion.
states that patient underwent cardiac catheterization 04/2024: No acute abnormalities.
-
Emphysema on CAT scan October 2024-doubt this is contributing to any significant symptoms at this point.
May consider pulmonary function testing in the outpatient setting.
-
Chronic anemia-prior CBC reviewed from records and hemoglobin was 9 about 1 or 2 months ago.
?Apparently she was told she needed a bone marrow biopsy-can explain some of the symptoms. Recommend continue to follow-up with hematology oncology.
Not urgent evaluation can be performed in the outpatient setting.
-
Part of the shortness of breath may be from deconditioning, patient has been in the hospital for about 1 month and then to rehab as above.
She has lost about 20 pounds since surgery.
Since her Whipple surgery she has been in and out of the hospital and never recovered.
Unclear if symptoms may be related to her surgery.
May need to consider swallowing evaluation at some point if issues with eating remain-patient denies any swallowing problems.
-
Will obtain home oxygen assessment closer to discharge. So far there is no pulmonary etiology for symptoms.
Physical therapy evaluation
Continue to monitor for arrhythmias
-
If she is asymptomatic and nothing is found in the next 24 hours she could follow-up in the outpatient setting.
-
Will follow
-
Extensive discussion with and daughter at the bedside regarding lung nodules and current symptoms 11/03/[address] Hayes in detail as well in 11/04/2024.
I agree with favoring conservative management and focus on comfort. Eventual outpatient follow-up with primary oncologist.
Subjective Data
-
Date of Service:
Date of Service: November 04, 2024
Chief Complaint: Pulmonary Follow Up (Dyspnea/Abnormal CT chest)
Subjective:
Continues to have intermittent episode of dyspnea-no particular trigger.
Denies any shortness of breath at rest
Does have chronic shortness of breath.
Review of Systems
Cardiopulmonary: Dyspnea and Dyspnea on Exertion
Objective Data
Data Reviewed
Vital Signs / I&O / Oxygen:
Vital Signs
Temp Pulse Resp BP Pulse Ox
99.8 F 75 18 131/56 99
11/04/24 15:18 11/04/24 15:18 11/04/24 15:18 11/04/24 15:18 11/04/24 15:18
Intake and Output
11/03/24 11/04/24 11/05/24
06:59 06:59 06:59
Intake Total 500 / 500 960 / 960
Output Total 650 / 650
Balance -150 / -150 960 / 960
SaO2 99
Nasal Cannula flow liters per 3
minute
Physical Exam
General: Comfortable
HEENT: Normocephalic
Cardiovascular: S1-S2
Respiratory: Non-Labored Respirations
GI: Soft and Non Distended
Neurology: Awake, Alert and No Motor Deficits
Labs/Micro/Reports
Lab Data
11/04/24 06:06
11/04/24 06:06
[2024-11-04] MEDS: NORVASC 5 MG PO (20:47)
[2024-11-04] MEDS: ZOLOFT 50 MG PO (20:47)
[2024-11-04 21:42] LABS: Glucose - Point of Care 201 mg/dl (70-99)
[2024-11-04] MEDS: STERILE WATER FOR INJECTION 10 ML IV (22:46)
[2024-11-04] MEDS: REMOVE LIDOCAINE PATCH 1 PATCH REMOVE (22:47)
[2024-11-04] MEDS: ROCEPHIN 1000 MG IV (22:47)
--- NOTE | 2024-11-04 22:59 | PTCARENOTE ---
IV rocephin given late, waited for urine specimen to be collected prior to administration
[2024-11-04 23:12] LABS: Urine Character Clear (Clear)
[2024-11-04 23:42] LABS: Urine Squamous Cell >30 /LPF (Few)
[2024-11-04 23:49] LABS: Urine Urothelial Cell >30 /LPF (FEW)
[2024-11-05] VITALS (8 sets, daily range): BP systolic 115–138; BP diastolic 48–79; PULSE 67; O2SAT 100; BMI 22.7
[2024-11-05] MEDS: SYNTHROID PO (06:11)
--- NOTE | 2024-11-05 06:13 | PTCARENOTE ---
Pt states 'I think I'm sick'. Reports nausea. Dry heaving, emesis basin provided. Small amount. Cool compress to forehead. FILM INSPECTOR covering contacted requesting PRN for nausea.
--- NOTE | 2024-11-05 06:13 | SUR.OPER ---
Pt states 'I think I'm sick'. Reports nausea. Dry heaving, emesis basin provided. Small amount. Cool compress to forehead. RENTAL CLERK covering contacted requesting PRN for nausea.
[2024-11-05] MEDS: ZOFRAN 4 MG IV (06:28)
[2024-11-05 08:39] LABS: ALT (SGPT) 90 U/L (0-35); AST (SGOT) 38 U/L (14-36); Albumin 3.0 g/dl (3.5-5.0); Alkaline Phosphatase 440 U/L (38-126); Blood Urea Nitrogen 28 mg/dl (7-17); Calcium 7.1 mg/dl (8.4-10.2); Carbon Dioxide 14 mmol/L (22-30); Chloride 113 mmol/L (98-107); Estimated Creatinine Clearance 31 ml/min; Glucose 136 mg/dl (70-99); Potassium 4.5 mmol/L (3.5-5.1); Sodium 134 mmol/L (135-145); Total Protein 5.6 g/dl (6.3-8.2); eGFR 45.19
[2024-11-05 08:49] LABS: Glucose - Point of Care 156 mg/dl (70-99)
[2024-11-05] MEDS: LOW STRENGTH ASPIRIN 81 MG PO (08:55)
[2024-11-05] MEDS: MIRALAX 17 GRAMS PO (08:55)
[2024-11-05] MEDS: PRANDIN 2 MG PO ×2 (08:56→16:12)
[2024-11-05] MEDS: DETROL LA 4 MG PO (08:56)
[2024-11-05] MEDS: LIDOCAINE 4% PATCH 1 PATCH TOPICAL (08:56)
[2024-11-05] MEDS: ARIMIDEX 1 MG PO (08:56)
[2024-11-05] MEDS: TYLENOL 1000 MG PO ×3 (08:56→22:00)
[2024-11-05] MEDS: NOVOLOG FLEXPEN-LOW RESISTANCE 1 UNITS SC ×2 (08:57→17:04)
[2024-11-05] MEDS: STERILE WATER FOR INJECTION 10 ML IV (09:01)
[2024-11-05] MEDS: ROCEPHIN 1000 MG IV (09:01)
--- NOTE | 2024-11-05 09:34 | W.PN.HOSP.TC ---
Today's Communication/Plan
-
.
ABG
Pain control
Assessment / Plan
Assessment / Plan
Physical Exam
General: Well Developed, Well Nourished and No Apparent Distress
HEENT: Normocephalic, Moist mucous membranes and Atraumatic
Respiratory: no wheezes.
Cardiac: S1/S2
GI: Soft, Non Tender, Non Distended and Normal Bowel Sounds;
Musculoskeletal: No Clubbing, No Cyanosis and No Edema
Skin: No Rash
Neuro: AO x 3 and Nonfocal/grossly intact
Psych: Calm
# Acute respiratory distress
Respiratory alkalosis
She continues to have sob although her SaO2 in normal.
Stat x ray/ troponin/EKG no acute findings
She presented with Tachypnea/dizzy, fatigue,chest discomfort
CT chest with contrast : negative for PE. Pulmonary nodules raising possibility of pulmonary metastasis
-pulmonology and oncology consulted.
Per oncology, no new recommendations
# CKD stage II
# History of kidney cancer status post left nephrectomy
Known CKD stage II non anion gap Metabolic acidosis
Left nephrectomy due to cancer
d/w meat stock clerk dermatology nurse practitioner 11/05, Patient is having metabolic acidosis secondary to respiratory alkalosis. Do not recommend bicarbonate infusion or orally. Continue to monitor correct respiratory alkalosis
# Upper back pain between shoulder blades
d/w daughter, pt is known to have fusions/ back problems
Per x ray, ct chest, no lytic lesions
Will c/w lidocaine patch, Tylenol ATC, PRN Oxycodone
# Mild fever
Did blood and urine culture
Urine positive bacteria, empiric IV Rocephin
Per family, she was hospitalized twice this year in [facility] with sepsis but no source found.
# Transaminitis likely metastatic disease.
- AST 102, ALT 207, 677
-denied abdominal pain
# Anemia likely from chronic disease
- Hemoglobin 9.6, no active bleeding
-ctm
# History of papillary thyroid cancer
- Status post thyroidectomy
- On Synthroid
# Type 2 diabetes
- repaglinide continued
-Sliding scale, CHO diet
# Depression/anxiety
# History of Alzheimer's with dementia
-Sertraline continued
# Essential hypertension
- Norvasc, continue with hold parameters
#History of CAD/NSTEMI
No chest pain, she feels better, think O2 helped.
- Aspirin continued
# History of breast cancer
- On anastrozole
Primary oncologist Dr Peterson [phone]
# DVT prophylaxis
- Lovenox
# CODE STATUS
Full code
Total time spent to see the patient, examine the patient, review data lab result, discuss treatment plan with patient, family, consultants, nursing staff around 55 minutes
Anticipated Discharge: > 48 hours
Subjective/Interval History
-
Date of Service: November 05, 2024
SHE HAS UPPER BACK PAIN
Objective Data
-
Labs:
Laboratory Results
11/05/24 11/05/24
07:32 09:26
HCO3 Pending
Sodium 134 L
Potassium 4.5
Chloride 113 H
Carbon Dioxide 14 L*
BUN 28 H
Creatinine 1.2 H
Glucose 136 H
Calcium 7.1 L
Total Bilirubin 0.5
AST 38 H
ALT 90 H
Alkaline Phosphatase 440 H
Vital Signs:
Vital Signs
Temp Pulse Resp BP Pulse Ox
98.7 F 71 18 137/59 100
11/05/24 07:30 11/05/24 07:30 11/05/24 07:30 11/05/24 07:30 11/05/24 07:30
I&O
11/04/24 11/05/24 11/06/24
06:59 06:59 06:59
Intake Total 960 / 960 600 / 600
Output Total 200 / 200
Balance 960 / 960 400 / 400
[2024-11-05 10:40] LABS: B.E. -6.2 mmol/L; O2 Saturation % 99.1 % (94-98); PO2 141 mmHg (83-108)
[2024-11-05 10:45] LABS: HCO3 15.0 mmol/L (21-28); PCO2 18 mmHg (32-35)
[2024-11-05 12:06] LABS: Glucose - Point of Care 231 mg/dl (70-99)
[2024-11-05] MEDS: NOVOLOG FLEXPEN-LOW RESISTANCE 2 UNITS SC (12:12)
[2024-11-05] MEDS: DILAUDID 0.25 MG IV (12:13)
--- NOTE | 2024-11-05 12:23 | W.PN.PUL3 ---
Today's Communication / Plan
-
No additional testing from the pulmonary perspective-no evidence for pulmonary pathology
Follow-up with oncology regarding lung nodule
Nongap metabolic acidosis evaluation ongoing.
May need anxiolytics--> may explain hyperventilation
Pain control
Assessment
-
84-year-old woman with multiple comorbidities, recently discharged from the hospital and rehab about a week ago. Apparently with sepsis of unknown source. Back with dyspnea sensation, feeling fatigued and dizzy-CT of the chest demonstrated
bilateral pulmonary nodules. We were consulted for evaluation.
Abnormal CT chest: Bilateral pulmonary nodules
CT chest 11/02/2024: Pleural-based right upper lobe 6 mm, right lower lobe 8 mm, spiculated pleural-based nodule lingula 1.7 cm. Left lower lobe 4 mm.
Exertional dyspnea/dizziness-nonspecific symptoms. Details obtained from daughter.
Negative proBNP
Negative troponin
CT chest: No infiltrates or pleural effusion. No evidence for pulmonary embolism or aortic dissection. Bilateral pulmonary nodules.
EKG: Normal sinus rhythm. T wave abnormality consider lateral ischemia.
Emphysema on CAT scan-no PFT available
Nongap metabolic acidosis-possibly post IV saline
Transaminitis-mostly due to metastatic disease
Normocytic anemia
Conditions present prior admission:
Recent admission to [facility]: Similar symptoms found to have sepsis of unclear source per family.
Chronic kidney disease
Osteoarthritis
Coronary artery disease
Type 2 diabetes
Hyperlipidemia
Diverticulosis
GERD
Hypertension
Hypothyroidism
Alzheimer's dementia
Obstructive sleep apnea
Papillary thyroid cancer status post thyroidectomy
Renal cell cancer status post nephrectomy
History of breast cancer, on Arimidex-no details available regarding stage-diagnosis since 2020
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
former smoker
Assessment and plan:.
Continues to have episodes of acute exertional dyspnea-not triggered by any intervention.
Usually self resolve.
ABG 11/06/2023: Respiratory alkalosis with metabolic acidosis.
Out of proportion metabolic alkalosis possibly due to hyperventilation from anxiety.
Repeat VBG tomorrow.
During these episodes patient appears to be in distress but hemodynamically stable, not tachycardic or hypoxemic.
Unlikely unrelated to pulmonary pathology.
Since admission patient has had a nongap metabolic acidosis-no prior admissions to [facility].
Initially, with normal creatinine.
Not recorded whether this patient got normal saline on admission but regardless acidosis not clearing.
UA noted-pH 6.5---white blood cells 11-15, moderate bacteria. Culture sent. Antibiotics started for possible UTI. Unlikely to explain patient's symptoms.
She has been hemodynamically stable.
-
Discussed with primary team-? RTA-curbside with nephrology less likely.
Will repeat VBG tomorrow, if pH is improved can consider oral bicarb.
Check TSH
Check cortisol level
-
From the pulmonary perspective: No additional testing.
-
In regards to exertional dyspnea-chronic symptom:
Patient has been in and out of the hospital since her Whipple surgery February 2024-she never had recovered completely.
Extensive workup has been done.
Likely has component of exertional dyspnea from deconditioning.
She completed rehabilitation and was discharged about a week ago.
Daughter describes patient short of breath even with eating-random episodes that spontaneously resolve-unclear etiology.
On 11/04/2024 had 1 episode-subjective dyspnea. Heart rate was 70-sinus rhythm on telemetry. Vital signs stable. Not hypoxemic. 99%.
Unclear if related to pain or anxiety.
See above:
Random and not triggered by any physical activity at times.
On my exam lungs him is clear
There is no cough or phlegm production
She denies swallowing dysfunction
Echocardiogram to be repeated.
-
Patient denies being anxious-but she does have history of underlying dementia. Worsened after her Whipple surgery in February 2024.
So far telemetry without arrhythmia.
Records reviewed from hospital and found: Echocardiogram done in October 2024-showed mild LVH. Normal LVEF. Mild to moderate MR. No pericardial effusion.
states that patient underwent cardiac catheterization 04/2024: No acute abnormalities.
-
Emphysema on CAT scan October 2024-doubt this is contributing to any significant symptoms at this point.
May consider pulmonary function testing in the outpatient setting.
-
Chronic anemia-prior CBC reviewed from records and hemoglobin was 9 about 1 or 2 months ago.
?Apparently she was told she needed a bone marrow biopsy-can explain some of the symptoms. Recommend continue to follow-up with hematology oncology.
Not urgent evaluation can be performed in the outpatient setting.
-
Part of the shortness of breath may be from deconditioning, patient has been in the hospital for about 1 month and then to rehab as above.
She has lost about 20 pounds since surgery.
Since her Whipple surgery she has been in and out of the hospital and never recovered.
Unclear if symptoms may be related to her surgery.
May need to consider swallowing evaluation at some point if issues with eating remain-patient denies any swallowing problems.
-
Physical therapy evaluation when able.
Continue to monitor for arrhythmias-none detected.
-
In regards to pulmonary nodules: Potentially metastatic.
She has a longstanding history with her oncologist Dr. Peterson. Will recommend her to follow-up with him to decide whether PET scan or biopsy will be needed.
Reviewed CAT scan reports from phone. Performed in October 2024: Right upper lobe 3 mm nodule, 7 mm subpleural nodule in the right lower lobe. Otherwise clear lungs.
-
Some of the nodules particularly the left lower lobe pleural-based appears to be new. Could be inflammatory versus malignant. Others appear to be slightly enlarged based on reports.
Advised to get a CD to bring to the next oncology appointment.
Given abnormal LFTs PET scan probably will be required as well.
Her most recent cancer is breast-diagnosed since 2020.
This could be done in the outpatient setting.
-
If she is asymptomatic and nothing is found in the next 24 hours she could follow-up in the outpatient setting.
-
Will follow
-
Extensive discussion with and daughter at the bedside regarding lung nodules and current symptoms 11/03/[address] Hayes in detail as well in 11/04/2024 and 11/05/2024.
I agree with favoring conservative management and focus on comfort. Eventual outpatient follow-up with primary oncologist.
Subjective Data
-
Date of Service:
Date of Service: November 05, 2024
Chief Complaint: Pulmonary Follow Up (Dyspnea/Abnormal CT chest)
Subjective:
No complaints at rest
Continued to have episode of shortness of breath/hyperventilation
Review of Systems
GI: Abdominal Pain (n) and Nausea (n)
Neuro: Headache (n)
Objective Data
Data Reviewed
Vital Signs / I&O / Oxygen:
Vital Signs
Temp Pulse Resp BP Pulse Ox
98.4 F 68 18 115/53 100
11/05/24 11:35 11/05/24 11:35 11/05/24 11:35 11/05/24 11:35 11/05/24 11:35
Intake and Output
11/04/24 11/05/24 11/06/24
06:59 06:59 06:59
Intake Total 960 / 960 600 / 600
Output Total 200 / 200
Balance 960 / 960 400 / 400
SaO2 100
Nasal Cannula flow liters per 3
minute
Physical Exam
General: Comfortable
HEENT: Normocephalic
Cardiovascular: S1-S2
Respiratory: Non-Labored Respirations
GI: Soft and Non Distended
Neurology: Awake, Alert and No Motor Deficits
Labs/Micro/Reports
Lab Data
11/04/24 06:06
11/05/24 07:32
Laboratory Results
11/05/24
10:32
pH 7.53 H
pCO2 18 L*
pO2 141 H
HCO3 15.0 L*
O2 Delivery Level
[2024-11-05 14:07] LABS: Cortisol, Random 17.4 ug/dl; TSH 5.29 uIU/ml (0.47-4.68)
--- NOTE | 2024-11-05 14:52 | CM ---
CM reviewed chart, patient seen bedside with , discussed therapy recommendations of SNF. Patient and agreeable, requesting referral to [facility] as patient has been there in past several times. CM discussed sending additional
facilities as back up, not agreeable at this time and would prefer to stick with [facility]. Referral placed in [facility]. CM discussed potential for ambulance/[facility] transport on d/c, if [facility], patient will need to provide payment,
understanding. CM will continue to follow for all discharge planing needs.
Plan; Referral to [facility], no auth required
[2024-11-05] MEDS: ROXICODONE 2.5 MG PO ×2 (16:12→22:00)
[2024-11-05 16:55] LABS: Glucose - Point of Care 170 mg/dl (70-99)
[2024-11-05] MEDS: LOVENOX 40 MG SC (17:05)
[2024-11-05] MEDS: REMOVE LIDOCAINE PATCH 1 PATCH REMOVE (20:13)
[2024-11-05] MEDS: ZOLOFT 50 MG PO (20:13)
[2024-11-05 21:38] LABS: Glucose - Point of Care 170 mg/dl (70-99)
[2024-11-05] MEDS: NORVASC 5 MG PO (22:00)
[2024-11-06] VITALS (8 sets, daily range): BP systolic 104–131; BP diastolic 45–69; PULSE 65–70; O2SAT 100; BMI 22.6
[2024-11-06] MEDS: SYNTHROID 125 MCG PO (05:30)
[2024-11-06 07:27] LABS: Glucose - Point of Care 142 mg/dl (70-99)
[2024-11-06] MEDS: NOVOLOG FLEXPEN-LOW RESISTANCE SC ×2 (07:58→16:54)
[2024-11-06] MEDS: MIRALAX 17 GRAMS PO (08:02)
[2024-11-06] MEDS: ARIMIDEX 1 MG PO (08:02)
[2024-11-06] MEDS: DETROL LA 4 MG PO (08:02)
[2024-11-06] MEDS: TYLENOL 1000 MG PO ×3 (08:02→22:19)
[2024-11-06] MEDS: LIDOCAINE 4% PATCH 1 PATCH TOPICAL (08:02)
[2024-11-06] MEDS: LOW STRENGTH ASPIRIN 81 MG PO (08:03)
[2024-11-06] MEDS: PRANDIN 2 MG PO ×2 (08:03→16:04)
[2024-11-06] MEDS: ROXICODONE 2.5 MG PO ×3 (08:03→22:18)
[2024-11-06 09:34] LABS: ALT (SGPT) 76 U/L (0-35); AST (SGOT) 27 U/L (14-36); Albumin 2.8 g/dl (3.5-5.0); Alkaline Phosphatase 375 U/L (38-126); Blood Urea Nitrogen 31 mg/dl (7-17); Calcium 6.8 mg/dl (8.4-10.2); Carbon Dioxide 16 mmol/L (22-30); Chloride 113 mmol/L (98-107); Estimated Creatinine Clearance 29 ml/min; Glucose 118 mg/dl (70-99); Potassium 4.6 mmol/L (3.5-5.1); Sodium 134 mmol/L (135-145); Total Protein 5.5 g/dl (6.3-8.2); eGFR 41.06
[2024-11-06] MEDS: ROCEPHIN 1000 MG IV (09:36)
[2024-11-06] MEDS: STERILE WATER FOR INJECTION 10 ML IV (09:37)
--- NOTE | 2024-11-06 09:40 | W.PN.HOSP.TC ---
Addendum entered and electronically signed by Ramirez Hayes MD 11/06/24 13:50:
Addendum
I spoke with , he feels now that SNF will be safer and better option to place the patient. I consulted geriatric case manager.
End
Original Note:
Today's Communication/Plan
-
likely discharge in am
Replace calcium
Add lantus
Consult palliative care for home services
Assessment / Plan
Assessment / Plan
Physical Exam
General: Well Developed, Well Nourished and No Apparent Distress
HEENT: Normocephalic, Moist mucous membranes and Atraumatic
Respiratory: no wheezes.
Cardiac: S1/S2
GI: Soft, Non Tender, Non Distended and Normal Bowel Sounds;
Musculoskeletal: No Clubbing, No Cyanosis and No Edema
Skin: No Rash
Neuro: AO x 3 and Nonfocal/grossly intact
Psych: Calm
# Acute respiratory distress/ She presented with Tachypnea/dizzy, fatigue,chest discomfort
Respiratory alkalosis
ABG reviewed with pulmonary doctor and shagger superintendent plant protection, it seemed metabolic acidosis was chronic ( from prior tests) and driven from respiratory hyperventilation. Also might be some component of diabetic ketoacidosis. Plan to treat her back
pain to help with RR. Also better control diabetes/ hyperglycemia. Single Wire Saw Operator did not feel bicarbonate was a good option.
Pain control with Tylenol & low dose Oxycodone
Reviewed x ray/ troponin/EKG no acute findings
CT chest with contrast : negative for PE. Pulmonary nodules raising possibility of pulmonary metastasis. She will need to f/w her oncologist at [place]
-pulmonology and oncology consulted.
Per oncology, no new recommendations
# CKD stage II
# History of kidney cancer status post left nephrectomy
Known CKD stage II non anion gap Metabolic acidosis
Left nephrectomy due to cancer
Hyponatremia
Hypocalcemia
replace
# Upper back pain between shoulder blades
d/w daughter, pt is known to have fusions/ back problems
Per x ray, ct chest, no lytic lesions
c/w lidocaine patch, Tylenol ATC, PRN Oxycodone
I'll reach out to radiologist
# Mild fever
Did blood and urine culture
Urine positive bacteria, empiric IV Rocephin
Per family, she was hospitalized twice this year in [facility] with sepsis but no source found.
# Transaminitis likely metastatic disease.
- AST 102, ALT 207, 677
-denied abdominal pain
# Anemia likely from chronic disease
- Hemoglobin 9.6, no active bleeding
-ctm
# History of papillary thyroid cancer
- Status post thyroidectomy
- On Synthroid
# Type 2 diabetes
- repaglinide continued
Add Lantus
-Sliding scale, CHO diet
# Depression/anxiety
# History of Alzheimer's with dementia
-Sertraline continued
# Essential hypertension
- Norvasc, continue with hold parameters
#History of CAD/NSTEMI
No chest pain
- Aspirin continued
# History of breast cancer
- On anastrozole
Primary oncologist Dr Peterson [phone]
# DVT prophylaxis
- Lovenox
# CODE STATUS
Full code
Total time spent to see the patient, examine the patient, review data lab result, discuss treatment plan with patient, family, consultants, nursing staff around 55 minutes
Anticipated Discharge: Within 24 hours
Subjective/Interval History
-
Date of Service: November 06, 2024
No sob
No chest pain
Objective Data
-
Labs:
Laboratory Results
11/06/24
07:14
Sodium 134 L
Potassium 4.6
Chloride 113 H
Carbon Dioxide 16 L
BUN 31 H
Creatinine 1.3 H
Glucose 118 H
Calcium 6.8 L*
Total Bilirubin 0.2
AST 27
ALT 76 H
Alkaline Phosphatase 375 H
Vital Signs:
Vital Signs
Temp Pulse Resp BP Pulse Ox
97.6 F 70 18 104/69 100
11/06/24 07:25 11/06/24 07:25 11/06/24 07:25 11/06/24 07:25 11/06/24 07:25
I&O
11/05/24 11/06/24 11/07/24
06:59 06:59 06:59
Intake Total 600 / 600 360 / 360
Output Total 200 / 200
Balance 400 / 400 360 / 360
[2024-11-06 10:00] LABS: Venous Blood Gas B.E. -6.6 mmol/L (-4 to +4); Venous Blood Gas O2 Sat % 99.1 %
[2024-11-06] MEDS: CALCIUM GLUCONATE 100 IV (10:43)
[2024-11-06 11:55] LABS: Glucose - Point of Care 152 mg/dl (70-99)
[2024-11-06] MEDS: LANTUS 0.12 UNITS SC (11:56)
[2024-11-06] MEDS: NOVOLOG FLEXPEN-LOW RESISTANCE 1 UNITS SC (11:56)
--- NOTE | 2024-11-06 12:32 | CM ---
Addendum entered by Janene Carrasco 11/06/24 16:22:
ARELI Watters received call from daughter Hali #[phone] who said that they have more choices from the list of facilities. Family provided 5 more choices and referrals were made to all 5 today sharing that there is a possibility for LTC. PLAN: SNF
to possible LTC, will follow up with family on choices once facilities respond.
Addendum entered by Janene Carrasco 11/06/24 13:34:
The daughter and her arrived after ARELI Watters met with the patient and spouse. Daughter shared that she had some more medical questions so asked DAREK Hernandez to ask the Attending speak to her today.
Family is not sure what would be the best next step for Mrs. Winslow. All are concerned with her going home and Mr. Winslow is concerned that he cannot care for her at home.
What ARELI Janene shared was then 2 options:
1. SNF option to LTC or at least staying longer that what the insurance will pay for (beyond 21 days and would have to speak to the Business Office of this facility looking at payment/ process beyond the 21 days) until they can figure out extra
services in the home.
2. Home Care/ [employer] company paying out of pocket or through a waiver service.
Each option was explained, questions were answered.
ARELI Watters came back with 2 agencies they can call for Home needs beyond what Home Care can provide names: [facility]. Also, [facility] card and contact was given to them as well, which the daughter is familiar
with them.
A list of SNF were provided and so daughter plans to pick more facilities hopefully today. A Palliative Care pamphlet was also provided.
PLAN: SNF placement at this time.
Original Note:
Following up on patient.
ARELI Janene learned that is recommended for SNF and that a referral was only made to [facility] who declined due to discharge concerns from that center. ARELI Watters learned that the asked about Acute Rehab level and [facility]. Explanation was
provided on why the patient would not qualify or tolerate this, but the was still asking questions.
ARELI Watters spoke to PT/OT this morning who stated that she cannot tolerate Acute Rehab. ARELI Watters met with the patient and the when he arrived. Explanation was given again on why and used some of the limitations the mentioned as we
were talking. Finally, the had let this option go. Mr. Winslow then said that the only options now are [facility] or Home PT. Mr. Winslow asked that [facility]ters call [facility].
[facility] said to ARELI Watters that she was just there last Saturday and based on her medical condition, she will require LTC that they cannot provide. ARELI Watters went back to Mr. Winslow and said that Home PT is now the only option. In between ARELI Watters
visiting, the patient has an episode of nausea so unsure when the patient will discharge now or what other services patient will need.
PLAN: Referral made to [facility] for RN and PT. IMM completed today at 12:35pm
--- NOTE | 2024-11-06 14:30 | W.PN.PUL3 ---
Today's Communication / Plan
-
Agree with DC planning
No additional pulmonary recommendations.
Should follow up with her Oncologist at [place] with lung nodules - discussed with .
sing off
Assessment
-
84-year-old woman with multiple comorbidities, recently discharged from the hospital and rehab about a week ago. Apparently with sepsis of unknown source. Back with dyspnea sensation, feeling fatigued and dizzy-CT of the chest demonstrated
bilateral pulmonary nodules. We were consulted for evaluation.
Abnormal CT chest: Bilateral pulmonary nodules
CT chest 11/02/2024: Pleural-based right upper lobe 6 mm, right lower lobe 8 mm, spiculated pleural-based nodule lingula 1.7 cm. Left lower lobe 4 mm.
Exertional dyspnea/dizziness-nonspecific symptoms. Details obtained from daughter.
Negative proBNP
Negative troponin
CT chest: No infiltrates or pleural effusion. No evidence for pulmonary embolism or aortic dissection. Bilateral pulmonary nodules.
EKG: Normal sinus rhythm. T wave abnormality consider lateral ischemia.
Emphysema on CAT scan-no PFT available
Nongap metabolic acidosis-possibly post IV saline
Transaminitis-mostly due to metastatic disease
Normocytic anemia
Conditions present prior admission:
Recent admission to [facility]: Similar symptoms found to have sepsis of unclear source per family.
Chronic kidney disease
Osteoarthritis
Coronary artery disease
Type 2 diabetes
Hyperlipidemia
Diverticulosis
GERD
Hypertension
Hypothyroidism
Alzheimer's dementia
Obstructive sleep apnea
Papillary thyroid cancer status post thyroidectomy
Renal cell cancer status post nephrectomy
History of breast cancer, on Arimidex-no details available regarding stage-diagnosis since 2020
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
former smoker
Assessment and plan:.
Continues to have episodes of acute exertional dyspnea-not triggered by any intervention.
Usually self resolve.
ABG 11/06/2023: Respiratory alkalosis with metabolic acidosis.
Out of proportion metabolic alkalosis possibly due to hyperventilation from anxiety.
During these episodes patient appears to be in distress but hemodynamically stable, not tachycardic or hypoxemic.
Unlikely unrelated to pulmonary pathology.
Since admission patient has had a nongap metabolic acidosis-no prior admissions to [facility].
Initially, with normal creatinine.
appears chronic - reviewed labs form husbands phone - can be evaluated in outpx- likely RTA.
-
UA noted-pH 6.5---white blood cells 11-15, moderate bacteria. Culture sent. Antibiotics started for possible UTI. Unlikely to explain patient's symptoms.
She has been hemodynamically stable.
-
Check T4 normal
Random cortisol normal.
-
From the pulmonary perspective: No additional testing.
-
Imaging- addendum by radiology.
There are subacute lateral left eighth, ninth and 10th rib fractures. These have associated callus formation.
No acute fractures are noted of the thoracic spine vertebral bodies.
If concerned of osseous metastatic disease bone scan- can be done in outpx with oncology.
may explain pain and SOB.
Discussed with Primary team
-
In regards to exertional dyspnea-chronic symptom:
Patient has been in and out of the hospital since her Whipple surgery February 2024-she never had recovered completely.
Extensive workup has been done.
Likely has component of exertional dyspnea from deconditioning.
She completed rehabilitation and was discharged about a week ago.
Daughter describes patient short of breath even with eating-random episodes that spontaneously resolve-unclear etiology.
On 11/04/2024 had 1 episode-subjective dyspnea. Heart rate was 70-sinus rhythm on telemetry. Vital signs stable. Not hypoxemic. 99%.
Unclear if related to pain or anxiety.
See above:
Random and not triggered by any physical activity at times.
On my exam lungs him is clear
There is no cough or phlegm production
She denies swallowing dysfunction
ECHO 11/05/2024:
1. Normal biventricular size and systolic function without regional wall motion abnormality.
2. Mild left ventricular hypertrophy.
3. Trace aortic regurgitation.
4. No prior study available for comparison.
-
Patient denies being anxious-but she does have history of underlying dementia. Worsened after her Whipple surgery in February 2024.
So far telemetry without arrhythmia.
Records reviewed from hospital and found: Echocardiogram done in October 2024-showed mild LVH. Normal LVEF. Mild to moderate MR. No pericardial effusion.
states that patient underwent cardiac catheterization 04/2024: No acute abnormalities.
-
Emphysema on CAT scan October 2024-doubt this is contributing to any significant symptoms at this point.
May consider pulmonary function testing in the outpatient setting.
-
Chronic anemia-prior CBC reviewed from records and hemoglobin was 9 about 1 or 2 months ago.
?Apparently she was told she needed a bone marrow biopsy-can explain some of the symptoms. Recommend continue to follow-up with hematology oncology.
Not urgent evaluation can be performed in the outpatient setting.
-
Part of the shortness of breath may be from deconditioning, patient has been in the hospital for about 1 month and then to rehab as above.
She has lost about 20 pounds since surgery.
Since her Whipple surgery she has been in and out of the hospital and never recovered.
Unclear if symptoms may be related to her surgery.
May need to consider swallowing evaluation at some point if issues with eating remain-patient denies any swallowing problems.
-
Physical therapy evaluation when able.
Continue to monitor for arrhythmias-none detected.
-
In regards to pulmonary nodules: Potentially metastatic.
She has a longstanding history with her oncologist Dr. Peterson. Will recommend her to follow-up with him to decide whether PET scan or biopsy will be needed.
Reviewed CAT scan reports from phone. Performed in October 2024: Right upper lobe 3 mm nodule, 7 mm subpleural nodule in the right lower lobe. Otherwise clear lungs.
-
Some of the nodules particularly the left lower lobe pleural-based appears to be new. Could be inflammatory versus malignant. Others appear to be slightly enlarged based on reports.
Advised to get a CD to bring to the next oncology appointment.
Given abnormal LFTs PET scan probably will be required as well.
Her most recent cancer is breast-diagnosed since 2020.
This could be done in the outpatient setting.
-
No additional testing for my perspective.
Placement.
Will sing off.
-
Extensive discussion with and daughter at the bedside regarding lung nodules and current symptoms 11/03/[address] Hayes in detail as well in 11/04/2024 and 11/05/2024.
I agree with favoring conservative management and focus on comfort. Eventual outpatient follow-up with primary oncologist.
Subjective Data
-
Date of Service:
Date of Service: November 06, 2024
Chief Complaint: Pulmonary Follow Up (Dyspnea/Abnormal CT chest)
Objective Data
Data Reviewed
Vital Signs / I&O / Oxygen:
Vital Signs
Temp Pulse Resp BP Pulse Ox
98.7 F 67 16 110/54 100
11/06/24 11:14 11/06/24 11:14 11/06/24 11:14 11/06/24 11:14 11/06/24 11:14
Intake and Output
11/05/24 11/06/24 11/07/24
06:59 06:59 06:59
Intake Total 600 / 600 360 / 360
Output Total 200 / 200
Balance 400 / 400 360 / 360
SaO2 100
Nasal Cannula flow liters per 3
minute
Physical Exam
General: Comfortable
HEENT: Normocephalic
Cardiovascular: S1-S2
Respiratory: Non-Labored Respirations
GI: Soft and Non Distended
Neurology: Awake, Alert and No Motor Deficits
Labs/Micro/Reports
Lab Data
11/04/24 06:06
11/06/24 07:14
Microbiology
11/04/24 22:51 Urine Urine Culture - Final
11/04/24 18:12 Blood/Venous Blood Culture - Preliminary
No Growth in 24 hours- Final report to follow
--- NOTE | 2024-11-06 14:58 | W.PN.UPDATE ---
Update Note
Progress Note Update
Addendum
Met with family including and daughter, son-in-law
Patient has progressive Alzheimer dementia/ cancer with new emergent pulmonary disease and failure to thrive.
Explained CODE STATUS, CPR process. They agreed to change CODE STATUS to DNR to honor her wishes. is unable to care for her at home as her weakness progresses.
Focus will be on nutrition/ rehab to hopefully restore a reasonable function and physical performance status to be able to continue her treatments.
[2024-11-06 16:39] LABS: Glucose - Point of Care 88 mg/dl (70-99)
[2024-11-06] MEDS: LOVENOX 30 MG SC (17:11)
[2024-11-06] MEDS: THIAMINE INJECTION 200 MG IV (17:11)
[2024-11-06] MEDS: REMOVE LIDOCAINE PATCH 1 PATCH REMOVE (20:09)
[2024-11-06] MEDS: ZOLOFT 50 MG PO (20:09)
[2024-11-06 21:13] LABS: Glucose - Point of Care 114 mg/dl (70-99)
[2024-11-06] MEDS: NORVASC 5 MG PO (22:19)
[2024-11-07] VITALS (7 sets, daily range): BP systolic 112–136; BP diastolic 50–72; BMI 22.6
[2024-11-07] MEDS: SYNTHROID 125 MCG PO (06:10)
[2024-11-07 07:30] LABS: Hematocrit 26.8 % (37.0-47.0); Hemoglobin 8.5 g/dL (12.0-16.0); Mean Corp Hgb Conc. 31.7 g/dL (33.0-37.0); Mean Corpuscular Volume 90.5 fL (81.0-99.0); Platelet Count 185 10^3/uL (130-400); Red Cell Dist. Width 18.0 % (11.5-14.5)
[2024-11-07] MEDS: ROXICODONE 2.5 MG PO ×2 (07:58→16:39)
[2024-11-07] MEDS: TYLENOL 1000 MG PO ×3 (07:58→21:59)
[2024-11-07] MEDS: DETROL LA 4 MG PO (07:58)
[2024-11-07] MEDS: ARIMIDEX 1 MG PO (07:58)
[2024-11-07] MEDS: LOW STRENGTH ASPIRIN 81 MG PO (07:59)
[2024-11-07] MEDS: MIRALAX 17 GRAMS PO (07:59)
[2024-11-07] MEDS: THIAMINE INJECTION 200 MG IV (07:59)
[2024-11-07] MEDS: LIDOCAINE 4% PATCH 1 PATCH TOPICAL (07:59)
[2024-11-07 08:07] LABS: ALT (SGPT) 65 U/L (0-35); AST (SGOT) 27 U/L (14-36); Albumin 2.8 g/dl (3.5-5.0); Alkaline Phosphatase 381 U/L (38-126); Blood Urea Nitrogen 29 mg/dl (7-17); Calcium 7.0 mg/dl (8.4-10.2); Carbon Dioxide 18 mmol/L (22-30); Chloride 114 mmol/L (98-107); Estimated Creatinine Clearance 29 ml/min; Glucose 63 mg/dl (70-99); Magnesium 2.6 mg/dl (1.6-2.3); Potassium 4.8 mmol/L (3.5-5.1); Sodium 136 mmol/L (135-145); Total Protein 5.4 g/dl (6.3-8.2); eGFR 41.06
[2024-11-07] MEDS: CYANOCOBALAMIN 1000 MCG IM (08:07)
[2024-11-07] MEDS: NOVOLOG FLEXPEN-LOW RESISTANCE SC ×3 (08:13→16:38)
[2024-11-07 08:14] LABS: Glucose - Point of Care 72 mg/dl (70-99)
--- NOTE | 2024-11-07 08:24 | W.PN.HOSP.TC ---
Today's Communication/Plan
-
Replace calcium
Holding Lantus this morning then lowering the dose
Continue with oral amlodipine nighttime but lower the dose
As needed IV Dilaudid for respiratory distress/pain
Likely discharge early next week
Assessment / Plan
Assessment / Plan
Physical Exam
General: Well Developed, Well Nourished and No Apparent Distress
HEENT: Normocephalic, Moist mucous membranes and Atraumatic
Respiratory: no wheezes.
Cardiac: S1/S2
GI: Soft, Non Tender, Non Distended and Normal Bowel Sounds;
Musculoskeletal: No Clubbing, No Cyanosis and No Edema
Skin: No Rash
Neuro: AO x 3 and Nonfocal/grossly intact
Psych: Calm
# Acute respiratory distress/ She presented with Tachypnea/dizzy, fatigue,chest discomfort
Respiratory alkalosis
Her number with carbon dioxide level improving with the improvement of hyperventilation through pain control regimen
Per history, ABG reviewed with pulmonary doctor and telecommunication systems designer tactical air control party, it seemed metabolic acidosis was chronic ( from prior tests) and driven from respiratory hyperventilation. Also might be some component of diabetic ketoacidosis. Plan to treat
her back pain to help with RR. Also better control diabetes/ hyperglycemia. Business Center Manager did not feel bicarbonate was a good option.
Pain control with Tylenol & low dose Oxycodone . As needed IV Dilaudid for distress/severe pain
Reviewed x ray/ troponin/EKG no acute findings
CT chest with contrast : negative for PE. Pulmonary nodules raising possibility of pulmonary metastasis. She will need to f/w her oncologist at [facility]
-pulmonology and oncology consulted.
Per oncology, no new recommendations
Left voicemail to her oncologist at [facility], no callback
# CKD stage II
# History of kidney cancer status post left nephrectomy
Known CKD stage II non anion gap Metabolic acidosis
Left nephrectomy due to cancer
#Hyponatremia
#Hypocalcemia
replace
# Upper back pain between shoulder blades
d/w daughter, pt is known to have fusions/ back problems
Per x ray, ct chest, no lytic lesions
c/w lidocaine patch, Tylenol ATC, PRN Oxycodone
I'll reach out to radiologist
# Mild fever
Did blood and urine culture
Urine positive bacteria, empiric IV Rocephin
Per family, she was hospitalized twice this year in [facility] with sepsis but no source found.
# Transaminitis likely metastatic disease.
- AST 102, ALT 207, 677
-denied abdominal pain
# Anemia likely from chronic disease
- Hemoglobin 9.6, no active bleeding
-ctm
# History of papillary thyroid cancer
- Status post thyroidectomy
- On Synthroid
# Type 2 diabetes
-Holding oral repaglinide while in the hospital
Had loading dose Lantus to better control blood sugar
-Sliding scale, CHO diet
# Depression/anxiety
# History of Alzheimer's with dementia
-Sertraline continued
# Essential hypertension
Continue with amlodipine, nighttime
#History of CAD/NSTEMI
No chest pain
- Aspirin continued
# History of breast cancer
- On anastrozole
Primary oncologist Dr Peterson [phone]
# DVT prophylaxis
- Lovenox, lowered the dose per renal dosing
# CODE STATUS
Discussed with family. DNR/DNI
Total time spent to see the patient, examine the patient, review data lab result, discuss treatment plan with patient, family, consultants, nursing staff around 55 minutes
Anticipated Discharge: 24 - 48 hours
Subjective/Interval History
-
Date of Service: November 07, 2024
She reports less pain in her back, less sob
Objective Data
-
Labs:
Laboratory Results
11/07/24
07:02
WBC 3.5 L
Hgb 8.5 L
Hct 26.8 L
Plt Count 185
Sodium 136
Potassium 4.8
Chloride 114 H
Carbon Dioxide 18 L
BUN 29 H
Creatinine 1.3 H
Glucose 63 L
Calcium 7.0 L
Total Bilirubin 0.2
AST 27
ALT 65 H
Alkaline Phosphatase 381 H
Vital Signs:
Vital Signs
Temp Pulse Resp BP Pulse Ox
98 F 63 16 112/72 99
11/07/24 03:51 11/07/24 03:51 11/07/24 03:51 11/07/24 03:51 11/07/24 03:51
I&O
11/06/24 11/07/24 11/08/24
06:59 06:59 06:59
Intake Total 360 / 360 540 / 540
Output Total 440 / 440
Balance 360 / 360 100 / 100
--- NOTE | 2024-11-07 08:54 | CM ---
Addendum entered by Eunice Garcia 11/07/24 09:15:
Spoke with daughter; preference is [facility]; explained to her that CM will follow up on referral status to [facility] Saturday
Original Note:
SNF referral accepted by [facility]; Referral reviewed by [facility], decision pending
Contacted daughter, son-in-law reported that SNF preference is [facility]; he will have his call back this morning to discuss
Per Attending, patient will not be stable to discharge over the weekend.
Plan: discharge to SNF when stable
[2024-11-07] MEDS: ROCEPHIN 1000 MG IV (10:35)
[2024-11-07] MEDS: STERILE WATER FOR INJECTION 10 ML IV (10:35)
[2024-11-07] MEDS: CALCIUM GLUCONATE 100 IV (10:36)
[2024-11-07 12:42] LABS: Glucose - Point of Care 110 mg/dl (70-99)
[2024-11-07 16:27] LABS: Glucose - Point of Care 127 mg/dl (70-99)
[2024-11-07] MEDS: LOVENOX 30 MG SC (16:40)
[2024-11-07] MEDS: REMOVE LIDOCAINE PATCH 1 PATCH REMOVE (20:13)
[2024-11-07] MEDS: ROXICODONE PO (21:55)
[2024-11-07 21:59] LABS: Glucose - Point of Care 134 mg/dl (70-99)
[2024-11-07] MEDS: ZOLOFT 50 MG PO (21:59)
[2024-11-07] MEDS: LANTUS 0.07 UNITS SC (21:59)
[2024-11-07] MEDS: NORVASC 2.5 MG PO (21:59)
[2024-11-08 03:24] LABS: Glucose - Point of Care 99 mg/dl (70-99)
[2024-11-08 03:35] VITALS: BP 122/58
[2024-11-08 05:22] VITALS: BMI 22.4
[2024-11-08] MEDS: SYNTHROID 125 MCG PO (06:06)
[2024-11-08] MEDS: ROXICODONE 2.5 MG PO ×2 (07:48→16:06)
[2024-11-08] MEDS: THIAMINE INJECTION 200 MG IV (07:48)
[2024-11-08] MEDS: TYLENOL 1000 MG PO ×3 (07:48→21:47)
[2024-11-08] MEDS: CYANOCOBALAMIN 1000 MCG IM (07:49)
[2024-11-08] MEDS: DETROL LA 4 MG PO (07:49)
[2024-11-08] MEDS: ARIMIDEX 1 MG PO (07:49)
[2024-11-08] MEDS: LOW STRENGTH ASPIRIN 81 MG PO (07:49)
[2024-11-08] MEDS: LIDOCAINE 4% PATCH 1 PATCH TOPICAL (07:49)
[2024-11-08 07:50] VITALS: BP 142/66
[2024-11-08] MEDS: MIRALAX 17 GRAMS PO (07:50)
[2024-11-08 08:03] LABS: Glucose - Point of Care 100 mg/dl (70-99)
[2024-11-08 08:11] LABS: Blood Urea Nitrogen 30 mg/dl (7-17); Calcium 7.1 mg/dl (8.4-10.2); Carbon Dioxide 16 mmol/L (22-30); Chloride 114 mmol/L (98-107); Estimated Creatinine Clearance 34 ml/min; Glucose 91 mg/dl (70-99); Potassium 5.0 mmol/L (3.5-5.1); Sodium 135 mmol/L (135-145); eGFR 50.17
[2024-11-08] MEDS: NOVOLOG FLEXPEN-LOW RESISTANCE SC ×2 (08:28→13:00)
--- NOTE | 2024-11-08 08:37 | W.PN.HOSP.TC ---
Today's Communication/Plan
-
.
Assessment / Plan
Assessment / Plan
Physical Exam
General: Well Developed, Well Nourished and No Apparent Distress
HEENT: Normocephalic, Moist mucous membranes and Atraumatic
Respiratory: no wheezes.
Cardiac: S1/S2
GI: Soft, Non Tender, Non Distended and Normal Bowel Sounds;
Musculoskeletal: No Clubbing, No Cyanosis and No Edema
Skin: No Rash
Neuro: AO x 3 and Nonfocal/grossly intact
Psych: Calm
# Acute respiratory distress/ She presented with Tachypnea/dizzy, fatigue,chest discomfort
Respiratory alkalosis
Her number with carbon dioxide level improving with the improvement of hyperventilation through pain control regimen
Per history, ABG reviewed with pulmonary doctor and career transition specialist as400 consultant, it seemed metabolic acidosis has been chronic ( from prior tests) and likely driven from respiratory hyperventilation, might be element of RTA, might be some component of
diabetic ketoacidosis. Plan to treat her back pain to help with RR. Also better control diabetes/ hyperglycemia. Control Systems Specialist did not feel bicarbonate was a good option.
Pain control with Tylenol & low dose Oxycodone . As needed IV Dilaudid for distress/severe pain
Reviewed x ray/ troponin/EKG no acute findings
CT chest with contrast : negative for PE. Pulmonary nodules raising possibility of pulmonary metastasis. She will need to f/w her oncologist at [facility]
-pulmonology and oncology consulted.
Per oncology, no new recommendations
Left voicemail to her oncologist at [facility], no callback
# Depression/anxiety
# History of Alzheimer's with dementia
Her dementia seemed to progress rapidly in recent months, precisely after 2023 Whipple surgery AT [place]
-Sertraline continued,
After family meeting, plan to focus of nutrition/ pain control/ Rehab
# CKD stage II
# History of kidney cancer status post left nephrectomy
Known CKD stage II non anion gap Metabolic acidosis
Left nephrectomy due to cancer
relatively stable kidney function
#Hyponatremia
#Hypocalcemia
replace with IV calcium gluconate
# Upper back pain between shoulder blades / rib pain/ muscle pain in chest area
Ruled out Cardiac cause by EKGs, Troponin, Echo.
Family reported, pt is known to have fusions/ back problems
Per x ray, ct chest, no lytic lesions
Reached out to radiologist if concerning findings on images related to the thoracic spine/ribs. After reviewing images again, patient was found to have subacute fractures of lateral left 8, 9, 10 ribs- an addendum was added to the report. Per
family: Patient had fall in September, aware of the rib fractures at the time.
c/w lidocaine patch, Tylenol ATC, PRN Oxycodone. Family agreed to use opioids - cannot use nonsteroidal anti-inflammatory drugs due to solitary kidney/CKD.
# Mild fever, resolved.
No Leukocytosis, could be fever secondary to cancer.
Did blood and urine culture AND both negative
Urine positive bacteria, s/p 3 days course of IV Rocephin
Per family, she was hospitalized twice this year in [facility] with sepsis but no source found.
# Transaminitis likely metastatic disease.
- AST 102, ALT 207, 677
- She denied abdominal pain
# Anemia likely from chronic disease
- Hemoglobin 8-9, no active bleeding
-ctm
# History of papillary thyroid cancer
- Status post thyroidectomy
- On Synthroid
# Type 2 diabetes
-Holding oral repaglinide while in the hospital
Had loading dose Lantus to better control blood sugar
-Sliding scale, CHO diet
# Moderate to severe protein caloric not restriction.
Report of weight loss. Muscle atrophy with temporal wasting. Malnutrition secondary to dementia and cancer
Empiric vitamin replacement with IV thiamine and IM B12 while in the hospital.
# Essential hypertension
Continue with amlodipine, nighttime
#History of CAD/NSTEMI
No chest pain
- Aspirin continued
# History of breast cancer
- On anastrozole
Primary oncologist Dr Peterson [phone]
# DVT prophylaxis
- Lovenox, lowered the dose per renal dosing
# CODE STATUS
Discussed with family. DNR/DNI
Total time spent to see the patient, examine the patient, review data lab result, discuss treatment plan with patient, family, consultants, nursing staff around 55 minutes
Anticipated Discharge: 24 - 48 hours
Subjective/Interval History
-
Date of Service: November 08, 2024
She complains of sob and then says ( I do not know how I feel)
Objective Data
-
Labs:
Laboratory Results
11/08/24
06:24
Sodium 135
Potassium 5.0
Chloride 114 H
Carbon Dioxide 16 L
BUN 30 H
Creatinine 1.1 H
Glucose 91
Calcium 7.1 L
Vital Signs:
Vital Signs
Temp Pulse Resp BP Pulse Ox
97.5 F 54 18 122/58 100
11/08/24 03:35 11/08/24 03:35 11/08/24 03:35 11/08/24 03:35 11/08/24 03:35
I&O
11/07/24 11/08/24 11/09/24
06:59 06:59 06:59
Intake Total 540 / 540 540 / 540
Output Total 440 / 440 300 / 300
Balance 100 / 100 240 / 240
[2024-11-08] MEDS: CALCIUM GLUCONATE 100 IV (10:56)
[2024-11-08 11:39] VITALS: BP 141/65
[2024-11-08 12:06] LABS: Glucose - Point of Care 124 mg/dl (70-99)
[2024-11-08 15:34] VITALS: BP 152/64
[2024-11-08 16:42] LABS: Glucose - Point of Care 165 mg/dl (70-99)
[2024-11-08] MEDS: NOVOLOG FLEXPEN-LOW RESISTANCE 1 UNITS SC (17:24)
[2024-11-08] MEDS: LOVENOX 30 MG SC (17:24)
[2024-11-08 19:00] VITALS: BP 133/59
[2024-11-08] MEDS: REMOVE LIDOCAINE PATCH 1 PATCH REMOVE (20:14)
[2024-11-08 21:20] LABS: Glucose - Point of Care 158 mg/dl (70-99)
[2024-11-08] MEDS: ROXICODONE PO (21:44)
[2024-11-08] MEDS: NORVASC 2.5 MG PO (21:47)
[2024-11-08] MEDS: ZOLOFT 50 MG PO (21:47)
[2024-11-08] MEDS: LANTUS 0.07 UNITS SC (21:50)
[2024-11-08 23:00] VITALS: BP 148/61
[2024-11-09] VITALS (7 sets, daily range): BP systolic 133–168; BP diastolic 52–75; PULSE 67; O2SAT 100; BMI 22.3
[2024-11-09] MEDS: SYNTHROID 125 MCG PO (04:35)
[2024-11-09 07:40] LABS: Glucose - Point of Care 107 mg/dl (70-99)
[2024-11-09] MEDS: NOVOLOG FLEXPEN-LOW RESISTANCE SC ×2 (07:47→12:47)
[2024-11-09] MEDS: TYLENOL 1000 MG PO ×3 (09:10→21:31)
[2024-11-09] MEDS: ARIMIDEX 1 MG PO (09:10)
[2024-11-09] MEDS: DETROL LA 4 MG PO (09:10)
[2024-11-09] MEDS: LOW STRENGTH ASPIRIN 81 MG PO (09:11)
[2024-11-09] MEDS: CYANOCOBALAMIN 1000 MCG IM (09:12)
[2024-11-09] MEDS: LIDOCAINE 4% PATCH 1 PATCH TOPICAL (09:13)
[2024-11-09] MEDS: MIRALAX 17 GRAMS PO (09:14)
[2024-11-09] MEDS: THIAMINE INJECTION 200 MG IV (09:18)
[2024-11-09] MEDS: ROXICODONE 2.5 MG PO (09:18)
[2024-11-09] MEDS: FLUSH (NSS) 2 FLUSH IV (09:19)
[2024-11-09] MEDS: FLUSH (NSS) 1 FLUSH IV (09:20)
[2024-11-09 09:31] LABS: Hematocrit 28.6 % (37.0-47.0); Hemoglobin 9.5 g/dL (12.0-16.0); Mean Corp Hgb Conc. 33.2 g/dL (33.0-37.0); Mean Corpuscular Volume 91.1 fL (81.0-99.0); Platelet Count 210 10^3/uL (130-400); Red Cell Dist. Width 18.0 % (11.5-14.5)
[2024-11-09 09:54] LABS: ALT (SGPT) 46 U/L (0-35); AST (SGOT) 26 U/L (14-36); Albumin 3.0 g/dl (3.5-5.0); Alkaline Phosphatase 371 U/L (38-126); Blood Urea Nitrogen 30 mg/dl (7-17); Calcium 7.7 mg/dl (8.4-10.2); Carbon Dioxide 17 mmol/L (22-30); Chloride 114 mmol/L (98-107); Estimated Creatinine Clearance 31 ml/min; Glucose 97 mg/dl (70-99); Potassium 5.3 mmol/L (3.5-5.1); Sodium 136 mmol/L (135-145); Total Protein 5.7 g/dl (6.3-8.2); eGFR 45.19
[2024-11-09 12:38] LABS: Glucose - Point of Care 136 mg/dl (70-99)
[2024-11-09] MEDS: LOKELMA 5 GRAM PO (12:48)
--- NOTE | 2024-11-09 14:21 | W.PN.HOSP.TC ---
Today's Communication/Plan
-
DC planning
continue pain control, PT/OT
optimize nutrition
Assessment / Plan
Assessment / Plan
Assessment:
Acute respiratory distress, tachypnea with resulting respiratory alkalosis (in setting of chronic metabolic acidosis)
Exertional dyspnea suspected due to deconditioning
- likely in setting of pain, deconditioning, anxiety
- no objective acute pulm pathology; appreciate pulm evaluation
- CT chest 11/02/2024: Pleural-based right upper lobe 6 mm, right lower lobe 8 mm, spiculated pleural-based nodule lingula 1.7 cm. Left lower lobe 4 mm. OP follow up of nodules with oncology for PET vs biopsy. CT also showed Emphysema and can pursue
OP PFTs
Recent admission to [facility]: Similar symptoms found to have sepsis of unclear source per family.
UTI
- culture 30K mixed colonies. s/p 3 days Rocephin
subacute lateral left eighth, ninth and 10th rib fractures. These have associated callus formation
- continue pain control (lidocaine patch, Tylenol, oxycodone, Dilaudid)
Depression/anxiety
History of Alzheimer's with dementia
- Her dementia seemed to progress rapidly in recent months, precisely after 2023 Whipple surgery AT [facility]
- Sertraline continued
- After family meeting with Dr. Hayes, plan is to focus of nutrition/pain control/rehab
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
History of kidney cancer status post left nephrectomy
- follow BMP
Hyperkalemia - Lokelma x 1
Hyponatremia
Hypocalcemia
- replace with IV calcium gluconate
Transaminitis likely metastatic disease.
- AST 102, ALT 207, 677
- She denied abdominal pain
normocytic anemia likely from chronic disease
- monitor
Papillary thyroid cancer status post thyroidectomy
- continue Synthroid
Type 2 diabetes
-Holding oral repaglinide while in the hospital
- Had loading dose Lantus to better control blood sugar
- Sliding scale, CHO diet
Moderate to severe protein caloric not restriction.
- Report of weight loss. Muscle atrophy with temporal wasting. Malnutrition secondary to dementia and cancer
- Empiric vitamin replacement with IV thiamine and IM B12 while in the hospital.
Essential hypertension
- continue with amlodipine, nighttime
Coronary artery disease
No chest pain
- Aspirin continued
History of breast cancer, on Arimidex
- primary oncologist Dr Peterson [phone]
Osteoarthritis
Hyperlipidemia
GERD
Obstructive sleep apnea
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
DVT ppx: Lovenox
Code: DNR/DNI
Anticipated Discharge: > 48 hours
Subjective/Interval History
-
Date of Service: November 09, 2024
denies any new complaints at present except chronic SOB
Objective Data
-
Labs:
Laboratory Results
11/09/24
08:33
WBC 2.9 L
Hgb 9.5 L
Hct 28.6 L
Plt Count 210
Sodium 136
Potassium 5.3 H
Chloride 114 H
Carbon Dioxide 17 L
BUN 30 H
Creatinine 1.2 H
Glucose 97
Calcium 7.7 L
Total Bilirubin 0.2
AST 26
ALT 46 H
Alkaline Phosphatase 371 H
Vital Signs:
Vital Signs
Temp Pulse Resp BP Pulse Ox
97.6 F 58 18 137/63 100
11/09/24 11:09 11/09/24 11:09 11/09/24 11:09 11/09/24 11:09 11/09/24 11:09
I&O
11/08/24 11/09/24 11/10/24
06:59 06:59 06:59
Intake Total 540 / 540 800 / 800
Output Total 300 / 300 500 / 500
Balance 240 / 240 300 / 300
Physical Exam
-
General: No Apparent Distress and Appears Chronically Ill
HEENT: Normocephalic and Atraumatic
Respiratory: Negative Wheezes
Cardiac: Regular Rhythm and S1/S2
GI: Soft
Neuro: AO x 3
Psych: Calm
Data Reviewed
-
Total Time Spent with Patient (in minutes): 41
Labs: Labs Reviewed by me
[2024-11-09 16:53] LABS: Glucose - Point of Care 160 mg/dl (70-99)
--- NOTE | 2024-11-09 17:17 | CM ---
Addendum entered by Fabienne Ervin 11/09/24 17:39:
Disregard note below. D/c order is not in yet. Spoke to patient and explained we can still wait for [facility] as long as the D/C order is not in. IMM given and form on chart
Plan: D/C to [facility], if bed available and financials accepted
Original Note:
Spoke with son and informed him that [facility] requested financial information. Forms sent to son [email or web address]. Informed him that if [facility] can not give him a bed tomorrow, then they will need to choose and alternate SNF. Pt has
stephanie accepted at [facility]. Son agreed to send to [facility] if needed.
Plan: D/C to SNF
[2024-11-09] MEDS: NOVOLOG FLEXPEN-LOW RESISTANCE 1 UNITS SC (17:30)
[2024-11-09] MEDS: LOVENOX 30 MG SC (17:31)
[2024-11-09] MEDS: NORVASC 2.5 MG PO (20:15)
[2024-11-09] MEDS: ZOLOFT 50 MG PO (20:15)
[2024-11-09] MEDS: REMOVE LIDOCAINE PATCH 1 PATCH REMOVE (20:16)
[2024-11-09 21:17] LABS: Glucose - Point of Care 213 mg/dl (70-99)
[2024-11-09] MEDS: LANTUS 0.07 UNITS SC (21:31)
[2024-11-10 03:00] VITALS: BP 135/60
[2024-11-10] MEDS: SYNTHROID 125 MCG PO (05:34)
[2024-11-10 06:00] VITALS: BMI 22.1
[2024-11-10 07:05] VITALS: BP 143/60
[2024-11-10 08:18] LABS: Glucose - Point of Care 83 mg/dl (70-99)
[2024-11-10 08:37] LABS: Hematocrit 27.3 % (37.0-47.0); Hemoglobin 8.8 g/dL (12.0-16.0); Mean Corp Hgb Conc. 32.2 g/dL (33.0-37.0); Mean Corpuscular Volume 91.6 fL (81.0-99.0); Platelet Count 210 10^3/uL (130-400); Red Cell Dist. Width 18.0 % (11.5-14.5)
[2024-11-10 09:09] LABS: Blood Urea Nitrogen 28 mg/dl (7-17); Calcium 7.7 mg/dl (8.4-10.2); Carbon Dioxide 19 mmol/L (22-30); Chloride 114 mmol/L (98-107); Estimated Creatinine Clearance 34 ml/min; Glucose 83 mg/dl (70-99); Potassium 4.9 mmol/L (3.5-5.1); Sodium 137 mmol/L (135-145); eGFR 50.17
[2024-11-10] MEDS: MIRALAX 17 GRAMS PO (09:10)
[2024-11-10] MEDS: NOVOLOG FLEXPEN-LOW RESISTANCE SC ×3 (09:10→17:08)
[2024-11-10] MEDS: ZYLOPRIM 100 MG PO (09:11)
[2024-11-10] MEDS: TYLENOL 1000 MG PO ×2 (09:11→17:09)
[2024-11-10] MEDS: LOW STRENGTH ASPIRIN 81 MG PO (09:11)
[2024-11-10] MEDS: DETROL LA 4 MG PO (09:11)
[2024-11-10] MEDS: LIDOCAINE 4% PATCH 1 PATCH TOPICAL (09:11)
[2024-11-10] MEDS: THIAMINE INJECTION 200 MG IV (09:12)
[2024-11-10] MEDS: FLUSH (NSS) 2 FLUSH IV (09:12)
[2024-11-10] MEDS: ARIMIDEX 1 MG PO (09:12)
[2024-11-10 11:00] VITALS: BP 142/56
--- NOTE | 2024-11-10 11:25 | W.PN.HOSP.TC ---
Today's Communication/Plan
-
awaiting dispo plan
Assessment / Plan
Assessment / Plan
Assessment:
Acute respiratory distress, tachypnea with resulting respiratory alkalosis (in setting of chronic metabolic acidosis)
Exertional dyspnea suspected due to deconditioning
- likely in setting of pain, deconditioning, anxiety
- no objective acute pulm pathology; appreciate pulm evaluation
- CT chest 11/02/2024: Pleural-based right upper lobe 6 mm, right lower lobe 8 mm, spiculated pleural-based nodule lingula 1.7 cm. Left lower lobe 4 mm. OP follow up of nodules with oncology for PET vs biopsy. CT also showed Emphysema and can pursue
OP PFTs
Recent admission to [facility]: Similar symptoms found to have sepsis of unclear source per family.
UTI
- culture 30K mixed colonies. s/p 3 days Rocephin
subacute lateral left eighth, ninth and 10th rib fractures. These have associated callus formation
- continue pain control (lidocaine patch, Tylenol, oxycodone, Dilaudid)
Depression/anxiety
History of Alzheimer's with dementia
- Her dementia seemed to progress rapidly in recent months, precisely after 2023 Whipple surgery AT [place]
- Sertraline continued
- After family meeting with Dr. Hayes, plan is to focus of nutrition/pain control/rehab
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
History of kidney cancer status post left nephrectomy
- follow BMP
Hyperkalemia - Lokelma x 1
Hyponatremia
Hypocalcemia
- replace with IV calcium gluconate
Transaminitis likely metastatic disease.
- AST 102, ALT 207, 677
- She denied abdominal pain
normocytic anemia likely from chronic disease
- monitor
Papillary thyroid cancer status post thyroidectomy
- continue Synthroid
Type 2 diabetes
-Holding oral repaglinide while in the hospital
- Had loading dose Lantus to better control blood sugar
- Sliding scale, CHO diet
Moderate to severe protein caloric not restriction.
- Report of weight loss. Muscle atrophy with temporal wasting. Malnutrition secondary to dementia and cancer
- Empiric vitamin replacement with IV thiamine and IM B12 while in the hospital.
Essential hypertension
- continue with amlodipine, nighttime
Coronary artery disease
No chest pain
- Aspirin continued
History of breast cancer, on Arimidex
- primary oncologist Dr Peterson [phone]
Osteoarthritis
Hyperlipidemia
GERD
Obstructive sleep apnea
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
DVT ppx: Lovenox
Code: DNR/DNI
Dispo: Medically stable for discharge pending SNF placement
Anticipated Discharge: Within 24 hours
Subjective/Interval History
-
Date of Service: November 10, 2024
no new complaints
Objective Data
-
Labs:
Laboratory Results
11/10/24
08:06
WBC 2.6 L
Hgb 8.8 L
Hct 27.3 L
Plt Count 210
Sodium 137
Potassium 4.9
Chloride 114 H
Carbon Dioxide 19 L
BUN 28 H
Creatinine 1.1 H
Glucose 83
Calcium 7.7 L
Vital Signs:
Vital Signs
Temp Pulse Resp BP Pulse Ox
97.7 F 59 18 143/60 100
11/10/24 07:05 11/10/24 07:05 11/10/24 07:05 11/10/24 07:05 11/10/24 07:05
I&O
11/09/24 11/10/24 11/11/24
06:59 06:59 06:59
Intake Total 800 / 800 720 / 720
Output Total 500 / 500 750 / 750
Balance 300 / 300 -30 / -30
Physical Exam
-
General: No Apparent Distress
HEENT: Normocephalic and Atraumatic
Respiratory: Negative Wheezes
Cardiac: Regular Rhythm and S1/S2
GI: Soft
Genito-urinary: No Costovertebral Tender
Neuro: AO x 3
Psych: Calm
Data Reviewed
-
Total Time Spent with Patient (in minutes): 42
Labs: Labs Reviewed by me
--- NOTE | 2024-11-10 11:56 | CM ---
Addendum entered by Fabienne Ervin 11/10/24 12:47:
Met with Dtr Luisa again. The family has changed their decision for SNF facility to [facility]. Bed availability confirmed with Ana at [facility]. Ambulance transfer to be arranged for 4PM or after. Report number provided to [facility]
Plan: [facility]
Report # [phone]

Original Note:
Met with dtr regarding alternative places for short term rehab, dtr selected [facility]. CM called and confirmed there is a bed is available today. Dtr needs to speak with her sister and father before making a decision. Plan remains
transfer to SNF (TBD)
Spoke with [facility], stated it could take up to a week to receive and review financials for a determination of acceptance. Dr Daugherty and Dtr made aware.
Plan: transfer to SNF
[2024-11-10 12:22] LABS: Glucose - Point of Care 123 mg/dl (70-99)
--- NOTE | 2024-11-10 12:37 | W.DS.TRANS ---
DC Summary - [employer] Specialist
-
Discharge Instructions:
Discharge Diagnosis/Procedures rib pain, respiratory alkalosis (tachypnea),
lung nodules
Diet Diabetic, Carb Controlled
Additional Diets IDDSI 6 soft/bite sized diet
Activity As tolerated
Other Services ST,OT,PT
Instructions:
Stand-Alone Forms:
Changes to Home Medications: No
Discharge Medications:
DC Medications w/original date entered in [employer]
allopurinol 100 mg tablet 100 mg PO DAILY Gout 11/02/24
anastrozole 1 mg tablet 1 mg PO DAILY Cancer 11/02/24
aspirin 81 mg tablet,delayed release 81 mg PO DAILY Blood Clot Prevention/Tx 11/02/24
cholecalciferol (vitamin D3) 25 mcg (1,000 unit) tablet 25 mcg PO DAILY Supplement 11/02/24
coenzyme Q10 100 mg tablet 100 mg PO DAILY Supplement 11/02/24
docusate sodium 100 mg capsule (Colace) 100 mg PO BID Constipation 11/02/24
levothyroxine 125 mcg tablet 125 mcg PO DAILY@06 Thyroid 11/02/24
melatonin 5 mg tablet 5 mg PO HS PRN sleep 11/02/24
nitroglycerin 0.4 mg sublingual tablet 0.4 mg sublingual PRN PRN CHEST PAIN 11/02/24
omeprazole 20 mg delayed release,disintegrating tablet 20 mg PO DAILYPRN PRN GERD 11/02/24
sertraline 50 mg tablet 50 mg PO HS Mental Health/Anxiety 11/02/24
solifenacin 10 mg tablet 10 mg PO DAILY Urinary Issue 11/02/24
Insulin Glargine Lantus [Lantus] 7 units As Directed mls/hr SC HS 11/10/24
acetaminophen 500 mg tablet (Tylenol Extra Strength) 1,000 mg (2 x 500 mg) PO TID #100 tabs 11/10/24
amlodipine 2.5 mg tablet 2.5 mg PO HS #30 tabs 11/10/24
lidocaine 4 % topical patch 1 patch topical DAILY #30 ea 11/10/24
oxycodone 5 mg tablet 2.5 mg (1/2 x 5 mg) PO Q4HPRN PRN mod to severe pain #10 tabs 11/10/24
Home Medication Changes
Pending Results: No
Total time spent discharging patient (in min): 41
[2024-11-10 15:05] VITALS: BP 128/56
[2024-11-10 16:45] LABS: Glucose - Point of Care 141 mg/dl (70-99)
== END 2024-11-10 17:36 | DRG 640 ==
LOC: 4 EAST ACU 13:25
PROVIDERS: Internal Medicine; Nurse Practitioner Family; Registered Nurse; ADMITTING PHYSICIAN Internal Medicine; ATTENDING PHYSICIAN Internal Medicine; EMERGENCY PHYSICIAN Emergency Medicine; OTHER PHYSICIAN Internal Medicine Critical Care Medicine; OTHER PHYSICIAN Internal Medicine Hematology & Oncology
DX: E87.3 Alkalosis (principal); E43 Unspecified severe protein-calorie malnutrition; N39.0 Urinary tract infection, site not specified; E87.22 Chronic metabolic acidosis; R74.01 Elevation of levels of liver transaminase levels; D63.8 Anemia in other chronic diseases classified elsewhere; F41.9 Anxiety disorder, unspecified; F32.A Depression, unspecified; I25.10 Atherosclerotic heart disease of native coronary artery without angina pectoris; I12.9 Hypertensive chronic kidney disease with stage 1 through stage 4 chronic kidney disease, or unspecified chronic kidney disease; Z66 Do not resuscitate; N18.2 Chronic kidney disease, stage 2 (mild); E78.5 Hyperlipidemia, unspecified; M19.90 Unspecified osteoarthritis, unspecified site; G30.8 Other Alzheimer's disease; F02.80 Dementia in other diseases classified elsewhere, unspecified severity, without behavioral disturbance, psychotic disturbance, mood disturbance, and anxiety; C50.919 Malignant neoplasm of unspecified site of unspecified female breast; J43.9 Emphysema, unspecified; S22.42XD Multiple fractures of ribs, left side, subsequent encounter for fracture with routine healing; R06.03 Acute respiratory distress; E11.22 Type 2 diabetes mellitus with diabetic chronic kidney disease; G47.33 Obstructive sleep apnea (adult) (pediatric); W19.XXXD Unspecified fall, subsequent encounter; E87.5 Hyperkalemia; E87.1 Hypo-osmolality and hyponatremia; R09.02 Hypoxemia; K59.00 Constipation, unspecified; K21.9 Gastro-esophageal reflux disease without esophagitis; K57.90 Diverticulosis of intestine, part unspecified, without perforation or abscess without bleeding; R91.8 Other nonspecific abnormal finding of lung field; E83.51 Hypocalcemia; E03.9 Hypothyroidism, unspecified; I25.2 Old myocardial infarction; Z85.3 Personal history of malignant neoplasm of breast; Z85.528 Personal history of other malignant neoplasm of kidney; Z85.850 Personal history of malignant neoplasm of thyroid; Z87.891 Personal history of nicotine dependence; Z79.899 Other long term (current) drug therapy; Z68.22 Body mass index [BMI] 22.0-22.9, adult; Z79.890 Hormone replacement therapy; Z90.5 Acquired absence of kidney
CPT/HCPCS: 36600; 71045; 71046; 71275; 74177; 80048; 80053; 81003; 81015; 82010; 82533; 82805; 82962; 83036; 83735; 83880; 84439; 84443; 84484; 85025; 85027; 85610; 85730; 87040; 87086; 93005; 93306; 96360; 97116; 97163; 97167; 97530; 97535; 99285; Q9967